=== PATIENT | female | born 1990 | race Caucasian/White ===

== ENCOUNTER 2016-05-20 20:45 | Emergency (ER) | payer BC, OTHER ==
[2016-05-20 20:52] VITALS: RESP 18
[2016-05-20] MEDS ORDERED: SODIUM CHLORIDE 0.9% 1,000 ML IV ONE (21:08)
--- NOTE | 2016-05-20 21:11 | ED ---
General Adult HPI - General Chief complaint: Urogenital Stated complaint: Bilat Flank Pain Time Seen by Provider: 05/20/16 20:56 Source: patient, RN notes reviewed Mode of arrival: ambulatory Limitations: no limitations - History of Present Illness Initial comments: This is a 26-year-old female who presents with complaints of bilateral flank pain. Patient states she was diagnosed on Wednesday with a urinary tract infection and placed on Bactrim. Patient has been taking Bactrim since Wednesday. Patient reports increased bilateral back and flank pain since this morning. Patient states she still having burning with urination, frequency of urination. Patient has also noticed that the toilet paper is pink when she wipes and states this is a normal symptom that she gets with UTIs. Patient admits to some mild nausea when the pain gets really bad but denies any nausea right now. Patient denies any vomiting or diarrhea. Patient denies any new sexual partners, vaginal discharge or any lower abdominal pain. Patient denies any chance of being and is on oral contraceptives. Patient denies any recent fever, chills, shortness breath, chest pain, numbness, tingling, hematuria, headache, or visual changes, or any other complaints. - Related Data Home Medications Medication Instructions Recorded Confirmed Norgestimate-Ethinyl Estradiol 1 tab PO DAILY 05/20/16 05/20/16 [Norg-Ee 0.18-0.215-0.25/0.035] Sulfamethox-Tmp 800-160Mg [Bactrim 1 tab PO BID 05/20/16 05/20/16 DS 800-160 mg] Previous Rx's Medication Instructions Recorded Levofloxacin [Levaquin] 750 mg PO DAILY 5 Days 05/20/16 Phenazopyridine HCl [Pyridium] 100 mg PO TID #6 tab 05/20/16 Allergies Allergy/AdvReac Type Severity Reaction Status Date / Time No Known Allergies Allergy Verified 05/20/16 21:30 Review of Systems ROS Statement: Those systems with pertinent positive or pertinent negative responses have been documented in the HPI. ROS Other: All systems not noted in ROS Statement are negative. Past Medical History Past Medical History: No Reported History History of Any Multi-Drug Resistant Organisms: None Reported Past Surgical History: No Surgical Hx Reported Past Anesthesia/Blood Transfusion Reactions: No Reported Reaction Past Psychological History: Depression Smoking Status: Never smoker Past Alcohol Use History: Occasional Past Drug Use History: IV Drug Use General Exam - General Exam Comments Initial Comments: General: The patient is awake and alert, in no distress, and does not appear acutely ill. Eye: Pupils are equal, round and reactive to light, extra-ocular movements are intact. No nystagmus. There is normal conjunctiva bilaterally. No signs of icterus. Ears: TMs pink and pearly with intact cone of light bilaterally. Normal external ear canals Nose: Nasal turbinates pink and moist Mouth and throat: There are moist mucous membranes and no oral lesions. Neck: The neck is supple, there is no tenderness or JVD. Cardiovascular: There is a regular rate and rhythm. No murmur, rub or gallop is appreciated. Respiratory: Lungs are clear to auscultation, respirations are non-labored, breath sounds are equal. No wheezes, stridor, rales, or rhonchi. Gastrointestinal: Bilateral CVA tenderness, mild tenderness to palpation of the epigastric area and bilateral flanks. No right or left lower quadrant pain. Soft, non-distended abdomen without masses or organomegaly noted. There is no rebound or guarding present. Bowel sounds are unremarkable. Musculoskeletal: Normal ROM, no tenderness. Strength 5/5. Sensation intact. Radial pulses equal bilaterally 2+. Neurological: A&O x 3. CN II-XII intact, There are no obvious motor or sensory deficits. Coordination appears grossly intact. Speech is normal. Skin: Skin is warm and dry and no rashes or lesions are noted. Psychiatric: Cooperative, appropriate mood & affect, normal judgment. Limitations: no limitations Course Vital Signs 05/20/16 05/21/16 20:49 00:17 Temperature 98.3 F 98.0 F Pulse Rate 83 85 Respiratory 18 18 Rate Blood Pressure 144/90 127/84 O2 Sat by Pulse 97 100 Oximetry Medical Decision Making - Medical Decision Making This is a 26yo female who presents with increasing UTI symptoms and bilateral flank pain. On physical exam patient is well-appearing and afebrile. Bilateral CVA tenderness, mild tenderness to palpation of the epigastric area and bilateral flanks. Soft, non-distended abdomen without masses or organomegaly noted. There is no rebound or guarding present. Bowel sounds are unremarkable. A repeat urinalysis was done. Urine culture is pending. Basic labs are drawn and reviewed. Elevated white count noted. UA is showing evidence of UTI. At this time patient developed more pain in the back and a CT of abdomen and pelvis without contrast was done and reviewed showing: Negative computed tomography scan of the abdomen and pelvis. I do not see a cause for bilateral flank pain. Report by Dr. Wild. Patient is given Dilaudid for pain and noted relief. I discussed the results with patient. I discussed that patient' s antibiotics will be switched from Bactrim to Levaquin. I discussed pyridium for pain along with Tylenol and Motrin. I discussed return parameters at length. I discussed the patient should drink plenty of fluids. Discussed that patient should follow up with PCP tomorrow or return to the [facility] for any worsening symptoms or for any further concerns. Patient was receptive to this plan and patient will be discharged home. I discussed this case with attending physician Dr. Sanz who agrees the plan as stated above. - Lab Data Result diagrams: 05/20/16 21:25 05/20/16 21:25 Lab Results 05/20/16 05/20/16 05/20/16 Range/Units 21:25 21:25 21:27 WBC 14.1 H (3.8-10.6) k/uL RBC 4.38 (3.80-5.40) m/uL Hgb 13.2 (11.4-16.0) gm/dL Hct 36.9 (34.0-46.0) % MCV 84.1 (80.0-100.0) fL MCH 30.1 (25.0-35.0) pg MCHC 35.8 (31.0-37.0) g/dL RDW 13.2 (11.5-15.5) % Plt Count 253 (150-450) k/uL Neutrophils % 75 % Lymphocytes % 19 % Monocytes % 4 % Eosinophils % 1 % Basophils % 0 % Neutrophils # 10.6 H (1.3-7.7) k/uL Lymphocytes # 2.7 (1.0-4.8) k/uL Monocytes # 0.5 (0-1.0) k/uL Eosinophils # 0.2 (0-0.7) k/uL Basophils # 0.1 (0-0.2) k/uL Sodium 140 (137-145) mmol/L Potassium 4.3 (3.5-5.1) mmol/L Chloride 102 (98-107) mmol/L Carbon Dioxide 26 (22-30) mmol/L Anion Gap 12 mmol/L BUN 16 (7-17) mg/dL Creatinine 0.91 (0.52-1.04) mg/dL Est GFR (MDRD) Af Amer >60 (>60 ml/min/1.73 sqM) Est GFR (MDRD) Non-Af >60 (>60 ml/min/1.73 sqM) Glucose 89 (74-99) mg/dL Calcium 9.4 (8.4-10.2) mg/dL Total Bilirubin 0.4 (0.2-1.3) mg/dL AST 20 (14-36) U/L ALT 26 (9-52) U/L Alkaline Phosphatase 53 (38-126) U/L Total Protein 6.8 (6.3-8.2) g/dL Albumin 3.9 (3.5-5.0) g/dL Amylase 56 (30-110) U/L Lipase 123 (23-300) U/L HCG, Quant <2.4 mIU/mL Urine Color Yellow Urine Appearance Cloudy H (Clear) Urine pH 6.5 (5.0-8.0) Ur Specific [place] 1.012 (1.001-1.035) Urine Protein 1+ H (Negative) Urine Glucose (UA) Negative (Negative) Urine Ketones Negative (Negative) Urine Blood Moderate H (Negative) Urine Nitrite Negative (Negative) Urine Bilirubin Negative (Negative) Urine Urobilinogen <2.0 (<2.0) mg/dL Ur Leukocyte Esterase Large H (Negative) Urine RBC 88 H (0-5) /hpf Urine WBC >182 H (0-5) /hpf Urine WBC Clumps Few H (None) /hpf Urine Bacteria Few H (None) /hpf Disposition Clinical Impression: Urinary tract infection Disposition: HOME SELF-CARE Condition: Good Instructions: Urinary Tract Infection in Women (ED) Additional Instructions: Please stop Bactrim and take Levaquin. Please use Pyridium, Tylenol and Motrin for pain. Please be sure to drink plenty of fluids. Please follow-up with her family physician tomorrow or return to the [facility] for any worsening symptoms or for any further concerns. Prescriptions: Levofloxacin [Levaquin] 750 mg PO DAILY 5 Days Phenazopyridine HCl [Pyridium] 100 mg PO TID #6 tab Referrals: Thea Madden DO [Primary Care Provider] - 1-2 days Time of Disposition: 23:55
[2016-05-20 21:33] LABS: Appearance,Urine Cloudy (Clear); Bacteria,Urine Few /hpf; Bilirubin,Urine Negative (Negative); Glucose,Urine (UA) Negative (Negative); Ketones,Urine Negative (Negative); Leukocyte Esterase,Urine Large (Negative); Nitrite,Urine Negative (Negative); PH, Urine 6.5 (5.0-8.0); Particle Count 20989; Protein,Urine 1+ (Negative); RBC,Urine 88 /hpf (0-5); Specific Gravity,Urine 1.012 (1.001-1.035); UA Billing (MACRO vs. MICRO) MICRO; Urobilinogen,Urine <2.0 mg/dL (<2.0); WBC,Urine >182 /hpf (0-5)
[2016-05-20 21:37] LABS: Basophils # (A) 0.1 k/uL (0-0.2); Basophils % (A) 0 %; CHCM 35.7; Eosinophils # (A) 0.2 k/uL (0-0.7); Eosinophils % (A) 1 %; HCT 36.9 % (34.0-46.0); HDW 3.12; HGB 13.2 gm/dL (11.4-16.0); Luc # (Auto) 0.12; Luc % (Auto) 1; Lymphocytes # (A) 2.7 k/uL (1.0-4.8); Lymphocytes % (A) 19 %; MCH 30.1 pg (25.0-35.0); MCHC 35.8 g/dL (31.0-37.0); MCV 84.1 fL (80.0-100.0); Mean Platelet Volume 7.1; Monocytes # (A) 0.5 k/uL (0-1.0); Monocytes % (A) 4 %; Neutrophils # (A) 10.6 k/uL (1.3-7.7); Neutrophils % (A) 75 %; RBC 4.38 m/uL (3.80-5.40); RDW 13.2 % (11.5-15.5); WBC 14.1 k/uL (3.8-10.6); WBC (Perox) 14.35
[2016-05-20 21:52] LABS: ALT 26 U/L (9-52); AST 20 U/L (14-36); Alkaline Phosphatase 53 U/L (38-126); Amylase 56 U/L (30-110); Anion Gap 12 mmol/L; Blood Urea Nitrogen 16 mg/dL (7-17); Calcium 9.4 mg/dL (8.4-10.2); Carbon Dioxide 26 mmol/L (22-30); Chloride 102 mmol/L (98-107); Glucose 89 mg/dL (74-99); Non-African American GFR(MDRD) >60 (>60 ml/min/1.73 sqM); Potassium 4.3 mmol/L (3.5-5.1); Sodium 140 mmol/L (137-145); Total Bilirubin 0.4 mg/dL (0.2-1.3); Total Protein 6.8 g/dL (6.3-8.2)
[2016-05-20 22:08] LABS: HCG,Quantitative Serum <2.4 mIU/mL
[2016-05-20] MEDS ORDERED: HYDROmorphone 1 MG/ML 1 ML SYRINGE IVP STA (23:12)
--- NOTE | 2016-05-20 23:47 | CT ---
EXAMINATION TYPE: CT abdomen pelvis wo con DATE OF EXAM: 05/20/2016 11:39 PM COMPARISON: NONE HISTORY: UTI, bi-lateral flank pain CT DLP: 424.90 mGycm Automated exposure control for dose reduction was used. TECHNIQUE: Helical acquisition of images was performed from the lung bases through the pelvis. FINDINGS: Lung bases are clear. There is no pleural effusion. Liver spleen pancreas gallbladder appear normal. Bile ducts are not dilated. Kidneys have normal size and contour. There is no hydronephrosis. Ureters are not dilated. Bladder distends smoothly. There i s no pelvic mass. I see no intestinal wall thickening. There are no dilated loops. The bony structure s are intact. Uterus is anteverted. Appendix is not seen. There is no sign of appendicitis. IMPRESSION: NEGATIVE CT SCAN OF THE ABDOMEN AND PELVIS. I DO NOT SEE A CAUSE FOR BILATERAL FLANK PAIN.
[2016-05-21 00:18] VITALS: BP 127/84; PULSE 85; TEMP 98
== END 2016-05-21 00:18 | disposition home or self-care (01) ==
LOC: EC 20:45
DX: N39.0 Urinary tract infection, site not specified (principal); R10.816 Epigastric abdominal tenderness; D72.829 Elevated white blood cell count, unspecified; Z79.3 Long term (current) use of hormonal contraceptives
CPT/HCPCS: 36415; 80053; 82150; 83690; 85025; 81001; 84702; 87086; 74176; 99284; 96374; J1170; 87077; 87186

== ENCOUNTER 2016-07-19 20:29 | Emergency (ER) | payer BC, OTHER ==
[2016-07-19] MEDS ORDERED: ACETAMINOPHEN TAB 500 MG TAB PO STA (20:48)
[2016-07-19 20:52] VITALS: RESP 20
--- NOTE | 2016-07-19 21:13 | ED ---
ENT HPI - General Chief complaint: ENT Stated complaint: poss strep throat Time Seen by Provider: 07/19/16 20:44 Source: patient, RN notes reviewed, old records reviewed Mode of arrival: ambulatory Limitations: no limitations - History of Present Illness Initial comments: 26-year-old female with chief sore throat and fever. Seen him. She has NyQuil last night. Patient states that she's noticed some white spots on her tonsils. Patient states that she's not had any Motrin or Tylenol recently. Denies any history of sick contacts. Up-to-date on vaccinations. - Related Data Previous Rx's Medication Instructions Recorded Amoxicillin 500 mg PO Q8H #30 capsule 07/19/16 Allergies Allergy/AdvReac Type Severity Reaction Status Date / Time No Known Allergies Allergy Verified 07/19/16 20:52 Review of Systems ROS Statement: Those systems with pertinent positive or pertinent negative responses have been documented in the HPI. ROS Other: All systems not noted in ROS Statement are negative. Past Medical History Past Medical History: No Reported History History of Any Multi-Drug Resistant Organisms: None Reported Past Surgical History: No Surgical Hx Reported Past Anesthesia/Blood Transfusion Reactions: No Reported Reaction Past Psychological History: Depression Smoking Status: Never smoker Past Alcohol Use History: Occasional Past Drug Use History: IV Drug Use General Exam Limitations: no limitations General appearance: alert, in no apparent distress Head exam: Present: atraumatic, normocephalic, normal inspection Eye exam: Present: normal appearance, PERRL, EOMI. Absent: scleral icterus, conjunctival injection, periorbital swelling ENT exam: Present: normal exam, mucous membranes moist. Absent: normal oropharynx (erythematous and edematous tonsil wiht white exudates. ) Neck exam: Present: normal inspection, lymphadenopathy. Absent: tenderness, meningismus Respiratory exam: Present: normal lung sounds bilaterally. Absent: respiratory distress, wheezes, rales, rhonchi, stridor Cardiovascular Exam: Present: regular rate, normal rhythm, normal heart sounds. Absent: systolic murmur, diastolic murmur, rubs, gallop, clicks GI/Abdominal exam: Present: soft, normal bowel sounds. Absent: distended, tenderness, guarding, rebound, rigid Back exam: Present: normal inspection Neurological exam: Present: alert, oriented X3, CN II-XII intact Psychiatric exam: Present: normal affect, normal mood Skin exam: Present: warm, dry, intact, normal color. Absent: rash Course Vital Signs 07/19/16 07/19/16 20:49 21:53 Temperature 101.0 F H 98.7 F Pulse Rate 98 80 Respiratory 20 20 Rate Blood Pressure 121/63 135/60 O2 Sat by Pulse 100 100 Oximetry Medical Decision Making - Medical Decision Making 26-year-old female with chief sore throat and fever. Seen him. She has NyQuil last night. Patient states that she's noticed some white spots on her tonsils. Patient states that she's not had any Motrin or Tylenol recently. Denies any history of sick contacts. Up-to-date on vaccinations. Patient has erythematous and edematous tonsil with exudate, Rapid strep is positive. PAtient will be started on amoxicillin, given a starter pack. Patient understands treatment plan and will comply. Return parameters discussed. - Lab Data Lab Results 07/19/16 Range/Units 20:48 Group A Strep Rapid Positive A (Negative) Disposition Clinical Impression: Strep pharyngitis Disposition: HOME SELF-CARE Condition: Good Instructions: Strep Throat (ED) Additional Instructions: Rest, increase fluids. Continue to take Motrin and Tylenol every 4 hours for fever. Return to the emergency department if any alarming signs or symptoms occur. Complete entire antibiotic prescription. Prescriptions: Amoxicillin 500 mg PO Q8H #30 capsule Referrals: Thea Madden DO [Primary Care Provider] - 1-2 days Time of Disposition: 21:28
[2016-07-19] MEDS ORDERED: AMOXICILLIN 500MG STARTER PACK 3 CAP BTL PO STA (21:30)
[2016-07-19 21:54] VITALS: BP 135/60; PULSE 80; TEMP 98.7
== END 2016-07-19 21:53 | disposition home or self-care (01) ==
LOC: EC 20:29
DX: J02.0 Streptococcal pharyngitis (principal)
CPT/HCPCS: 87430; 99284

== ENCOUNTER 2016-11-26 19:55 | Emergency (ER) | payer BC, OTHER ==
[2016-11-26 20:07] VITALS: RESP 20
[2016-11-26 20:57] LABS: Appearance,Urine Clear (Clear); Bilirubin,Urine Negative (Negative); Glucose,Urine (UA) Negative (Negative); Ketones,Urine Negative (Negative); Leukocyte Esterase,Urine Negative (Negative); Nitrite,Urine Negative (Negative); Protein,Urine Negative (Negative); Specific Gravity,Urine 1.004 (1.001-1.035); UA Billing (MACRO vs. MICRO) CHEM; Urobilinogen,Urine <2.0 mg/dL (<2.0)
--- NOTE | 2016-11-26 21:49 | ED ---
General Adult HPI - General Chief complaint: Urogenital Stated complaint: kidney pain Time Seen by Provider: 11/26/16 21:08 Source: patient Mode of arrival: ambulatory Limitations: no limitations - History of Present Illness Initial comments: Patient presents with a chief complaint of right upper quadrant, and right flank pain that for about 2 days. Patient cannot identify inciting incident. Patient states that laying on that side and her pain worse. She does not identify that eating makes anything better or worse. Patient states that recently she has been going through a lot of personal stress, and her diet has been poor including fatty and greasy foods. There are no alleviating factors that she knows of. Patient has not tried taking any medications on an outpatient basis for relief. Timing is constant. Patient is on control, states that she just finished her period. - Related Data Home Medications Medication Instructions Recorded Confirmed Norgestimate-Ethinyl Estradiol 1 tab PO DAILY 11/26/16 11/26/16 [Ortho Tri-Cyclen 28 Tablet] Allergies Allergy/AdvReac Type Severity Reaction Status Date / Time No Known Allergies Allergy Verified 11/26/16 20:40 Review of Systems ROS Statement: Those systems with pertinent positive or pertinent negative responses have been documented in the HPI. ROS Other: All systems not noted in ROS Statement are negative. Constitutional: Denies: fever Eyes: Denies: vision change ENT: Denies: congestion Respiratory: Denies: cough Cardiovascular: Denies: chest pain Endocrine: Denies: fatigue Gastrointestinal: Reports: abdominal pain. Denies: nausea, vomiting Genitourinary: Reports: frequency Musculoskeletal: Reports: back pain Skin: Denies: rash Neurological: Denies: headache Past Medical History Past Medical History: No Reported History Additional Past Medical History / Comment(s): hx of UTI History of Any Multi-Drug Resistant Organisms: None Reported Past Surgical History: No Surgical Hx Reported Past Anesthesia/Blood Transfusion Reactions: No Reported Reaction Past Psychological History: Depression Smoking Status: Never smoker Past Alcohol Use History: Occasional Past Drug Use History: None Reported General Exam Limitations: no limitations General appearance: alert, in no apparent distress Head exam: Present: atraumatic, normocephalic Respiratory exam: Present: normal lung sounds bilaterally Cardiovascular Exam: Present: regular rate, normal rhythm, normal heart sounds GI/Abdominal exam: Present: soft, tenderness (Patient has tenderness to palpation the right upper quadrant but she says is very reproductive of the pain she is experiencing at home. There is a positive Ackerman sign.) Rectal exam: Present: deferred Extremities exam: Present: normal inspection Back exam: Present: CVA tenderness (R). Absent: CVA tenderness (L) Neurological exam: Present: alert, oriented X3 Psychiatric exam: Present: normal affect, normal mood Skin exam: Present: warm, dry, intact Course Vital Signs 11/26/16 20:05 Temperature 98.2 F Pulse Rate 86 Respiratory 20 Rate Blood Pressure 133/93 O2 Sat by Pulse 97 Oximetry Medical Decision Making - Medical Decision Making Patient presents with chief complaint of right-sided flank and right upper quadrant pain. History of physical examination are concerning for UTI versus pyelonephritis versus gallbladder pathology. Patient will have basic abdominal lab work. Patient will go for an ultrasound. Urinalysis does not show any evidence of urinary tract infection. This time vital signs are stable, patient does not require anything for pain. 11:37 PM Lab evaluation the patient is benign. There does not appear to be any evidence of urinary tract infection, liver enzymes including alk phos. appear to be within normal limits. There is no white count. At this time we are pending the radiologist's interpretation of the ultrasound. Patient remained stable. 11:41 PM Ultrasound of the abdomen shows no acute abnormality. There are no gallstones or dilated ducts identified. At this time, patient is stable for discharge. She is instructed to follow up with primary care or return to the emergency department if her symptoms worsen or change in anyway. All of her questions are answered to the best of my abilities. - Lab Data Result diagrams: 11/26/16 22:10 11/26/16 22:10 Lab Results 11/26/16 11/26/16 11/26/16 Range/Units 20:45 22:10 22:10 WBC 8.0 (3.8-10.6) k/uL RBC 4.43 (3.80-5.40) m/uL Hgb 13.4 (11.4-16.0) gm/dL Hct 39.2 (34.0-46.0) % MCV 88.5 (80.0-100.0) fL MCH 30.3 (25.0-35.0) pg MCHC 34.3 (31.0-37.0) g/dL RDW 13.5 (11.5-15.5) % Plt Count 241 (150-450) k/uL Neutrophils % 53 % Lymphocytes % 38 % Monocytes % 6 % Eosinophils % 1 % Basophils % 1 % Neutrophils # 4.2 (1.3-7.7) k/uL Lymphocytes # 3.0 (1.0-4.8) k/uL Monocytes # 0.5 (0-1.0) k/uL Eosinophils # 0.1 (0-0.7) k/uL Basophils # 0.1 (0-0.2) k/uL Sodium 138 (137-145) mmol/L Potassium 4.3 (3.5-5.1) mmol/L Chloride 102 (98-107) mmol/L Carbon Dioxide 26 (22-30) mmol/L Anion Gap 10 mmol/L BUN 13 (7-17) mg/dL Creatinine 0.90 (0.52-1.04) mg/dL Est GFR (MDRD) Af Amer >60 (>60 ml/min/1.73 sqM) Est GFR (MDRD) Non-Af >60 (>60 ml/min/1.73 sqM) Glucose 88 (74-99) mg/dL Calcium 8.9 (8.4-10.2) mg/dL Total Bilirubin 0.3 (0.2-1.3) mg/dL AST 20 (14-36) U/L ALT 30 (9-52) U/L Alkaline Phosphatase 57 (38-126) U/L Total Protein 6.4 (6.3-8.2) g/dL Albumin 3.8 (3.5-5.0) g/dL Lipase 129 (23-300) U/L HCG, Qual Not Detected Urine Color Light Yellow Urine Appearance Clear (Clear) Urine pH 6.0 (5.0-8.0) Ur Specific [place] 1.004 (1.001-1.035) Urine Protein Negative (Negative) Urine Glucose (UA) Negative (Negative) Urine Ketones Negative (Negative) Urine Blood Negative (Negative) Urine Nitrite Negative (Negative) Urine Bilirubin Negative (Negative) Urine Urobilinogen <2.0 (<2.0) mg/dL Ur Leukocyte Esterase Negative (Negative) Disposition Clinical Impression: Strain of muscle, fascia and tendon of lower back, initial encounter Disposition: HOME SELF-CARE Condition: Good Instructions: Acute Low Back Pain (ED) Referrals: Thea Madden DO [Primary Care Provider] - 1-2 days
[2016-11-26 22:26] LABS: Basophils # (A) 0.1 k/uL (0-0.2); Basophils % (A) 1 %; CH 31.8; CHCM 36.1; Eosinophils # (A) 0.1 k/uL (0-0.7); Eosinophils % (A) 1 %; HCT 39.2 % (34.0-46.0); HDW 2.67; HGB 13.4 gm/dL (11.4-16.0); Luc # (Auto) 0.16; Luc % (Auto) 2; Lymphocytes % (A) 38 %; MCH 30.3 pg (25.0-35.0); MCHC 34.3 g/dL (31.0-37.0); MCV 88.5 fL (80.0-100.0); Mean Platelet Volume 7.6; Monocytes # (A) 0.5 k/uL (0-1.0); Monocytes % (A) 6 %; Neutrophils # (A) 4.2 k/uL (1.3-7.7); Neutrophils % (A) 53 %; RBC 4.43 m/uL (3.80-5.40); RDW 13.5 % (11.5-15.5); WBC (Perox) 8.48
[2016-11-26 22:31] LABS: HCG,Qualitative Serum Not Detected
[2016-11-26 22:40] LABS: ALT 30 U/L (9-52); AST 20 U/L (14-36); Alkaline Phosphatase 57 U/L (38-126); Anion Gap 10 mmol/L; Blood Urea Nitrogen 13 mg/dL (7-17); Calcium 8.9 mg/dL (8.4-10.2); Carbon Dioxide 26 mmol/L (22-30); Chloride 102 mmol/L (98-107); Glucose 88 mg/dL (74-99); Non-African American GFR(MDRD) >60 (>60 ml/min/1.73 sqM); Potassium 4.3 mmol/L (3.5-5.1); Sodium 138 mmol/L (137-145); Total Bilirubin 0.3 mg/dL (0.2-1.3); Total Protein 6.4 g/dL (6.3-8.2)
--- NOTE | 2016-11-26 23:39 | US ---
EXAMINATION TYPE: US abdomen complete DATE OF EXAM: 11/26/2016 COMPARISON: NONE CLINICAL HISTORY: Pain. EXAM MEASUREMENTS: Liver Length: 14.8 cm Gallbladder Wall: 0.21 cm CBD: 0.42 cm Spleen: 12.2 cm Right Kidney: 9.6 x 4.5 x 4.3 cm Left Kidney: 11.5 x 5.4 x 4.4 cm Pancreas: wnl Liver: wnl Gallbladder: wnl Evidence for sonographic Ackerman's sign: No CBD: wnl Spleen: wnl Right Kidney: No hydronephrosis or masses seen Left Kidney: No hydronephrosis or masses seen Upper IVC: wnl Abd Aorta: wnl The liver is homogenous. The intrahepatic portion of the IVC and proximal abdominal aorta are within normal limits. There is no evidence of cholelithiasis. Common bile duct is unremarkable. The visu alized portions of the pancreas are homogenous. The spleen is unremarkable. Kidneys are symmetric a nd free of hydronephrosis. No renal lesions are seen. IMPRESSION: Normal complete abdominal sonogram. No gallstones or dilated ducts.
[2016-11-27] VITALS: BP 116/67; PULSE 80; TEMP 98.7
== END 2016-11-27 | disposition home or self-care (01) ==
LOC: EC 19:55
DX: S39.012A Strain of muscle, fascia and tendon of lower back, initial encounter (principal); Z79.3 Long term (current) use of hormonal contraceptives; X58.XXXA Exposure to other specified factors, initial encounter
CPT/HCPCS: 36415; 76700; 80053; 81003; 83690; 84703; 85025; 87086; 99284

== ENCOUNTER 2017-07-31 17:50 | Emergency (ER) | payer OTHER, BC ==
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
[2017-07-31 18:48] LABS: Appearance,Urine Clear (Clear); Bilirubin,Urine Negative (Negative); Blood,Urine Negative (Negative); Color,Urine Yellow; Glucose,Urine (UA) Negative (Negative); Granular Casts,Urine 21 /lpf (0); Hyaline Casts,Urine 1 /lpf (0-2); Ketones,Urine Trace (Negative); Leukocyte Esterase,Urine Negative (Negative); Mucus,Urine Moderate /hpf; Nitrite,Urine Negative (Negative); Protein,Urine 1+ (Negative); RBC,Urine 2 /hpf (0-5); Specific Gravity,Urine 1.023 (1.001-1.035); Squamous Epithelial Cell,Urine 2 /hpf (0-4); Urobilinogen,Urine <2.0 mg/dL (<2.0); WBC,Urine 4 /hpf (0-5)
[2017-07-31 19:07] VITALS: BP 115/68; PULSE 91; RESP 16; TEMP 98.6
== END 2017-07-31 19:00 | disposition home or self-care (01) ==
LOC: EC 17:50
DX: O99.89 Other specified diseases and conditions complicating pregnancy, childbirth and the puerperium (principal); R10.9 Unspecified abdominal pain; Z3A.13 13 weeks gestation of pregnancy; V49.40XA Driver injured in collision with unspecified motor vehicles in traffic accident, initial encounter; Y92.410 Unspecified street and highway as the place of occurrence of the external cause
CPT/HCPCS: 81001; 99284

== ENCOUNTER 2017-11-18 12:41 | Outpatient (CLI) | payer BC, OTHER ==
[2017-11-18 20:18] VITALS: BP 119/63; PULSE 77; RESP 16; TEMP 98.2
--- NOTE | 2017-11-28 10:28 | P.MSEPDOC ---
Presenting Problems - Arrival Data Date of Arrival on Unit: 11/18/17 Time of Arrival on Unit: 12:41 Mode of Transport: Ambulatory - Complaint OB-Reason for Admission/Chief Complaint: Pain Comment: pt states reason for visit is she is having pressure in pelvis and lower. abdomen. states is not labor or contractions but feels like baby is really low putting a. lot of pressure on her. states slipped on stairs Wednesday and fell onto butt on step". large purple bruise 2 in by 5 inches lt buttock. states baby movement great no cramping. after fall. states she "checked herself and could not feel baby's head Medical History - Information : 3 Para: 2 Term: 2 : 0 Abortions: Spontaneous or Elective: 0 Number of Living Children: 2 - Gestational Age Gestational Age by WALLACE (wks/days): 28 Weeks and 2 Days Review of Systems - Review of Systems Constitutional: No problems Breast: No problems ENT: No problems Cardiovascular: No problems Respiratory: No problems Gastrointestinal: No problems Genitourinary: No problems Musculoskeletal: No problems Neurological: No problems Skin: No problems Vital Signs - Temperature Temperature: 98.2 F Temperature Source: Oral - Pulse Right Pulse Oximetery Pulse Rate: 77 Pulse Assessment Method: Pulse Oximetry - Respirations Respiratory Rate: 16 Oxygen Delivery Method: Room Air O2 Sat by Pulse Oximetry: 97 - Blood Pressure Right Arm Blood Pressure: 119/63 Blood Pressure Mean: 81 Blood Pressure Source: Automatic Cuff Medical Screen Scoring (Pre) - Cervical Exam Dilation: 0 cm = 0 Membranes: Intact - Uterine Contractions Frequency: N/A Duration: N/A Intensity: N/A - Maternal Vital Signs Maternal Temperature: N/A Maternal Blood Pressure: N/A Signs of Preeclampsia: N/A Maternal Respirations: N/A - Pain Assessment Pain Location and Character: Pelvic Pain Scale Used: Numeric (1 - 10) Pain Intensity: 6 Pain Description: Pressure Pain Frequency: Mainly with activity standing and walking Pain Duration Units: off and on last few days Pain Behavior: None Exhibited Effects of Pain: none Pain Aggravating Factors: Activity, Walking - Maternal Trauma Maternal Trauma: N/A - Assessment Baseline FHR: 135 Heart Rate - NICHD Category: Category I (Normal) = 0 NST: Reactive Position: N/A Station: N/A - Total Score Total Score (Pre): 0 - Level of Risk Level of Risk: Low (0-5) Physician Notification (Pre) - Physician Notified Physician Notified Date: 11/18/17 Physician Notified Time: 13:33 Physician/Practitioner Notifed:: Dr Vo Spoke With: Dr Vo New Order Received: Yes - Notification Comment Comment: Dr Vo in department. discussed reason for visit pain and presure in plevis. "feels like bones pain not ligement pain". reported cat 1 fht. reactive NST. orders for. cervical exam and then discharge if not dialated. cervix closed pt discharged Disposition - Disposition OB Disposition: Discharge to home Discharge Date: 11/18/17 Discharge Time: 13:47 I agree with the RN Medical Screening Exam: Yes Risk & Benefit of care provided described in d/c instruction: Yes Diagnosis: RELATED CONDITIONS, UNSPECIFIED, THIRD TRIMESTER (s/p fall)
== END 2017-11-18 13:47 | disposition home or self-care (01) ==
LOC: FBPOP 12:41
PROVIDERS: ATTEND Obstetrics & Gynecology
DX: O26.93 Pregnancy related conditions, unspecified, third trimester (principal); Z3A.28 28 weeks gestation of pregnancy
CPT/HCPCS: 59025; 99213

== ENCOUNTER 2018-02-05 14:45 | Outpatient (CLI) | payer BC, OTHER ==
[2018-02-05 15:48] VITALS: BP 129/59; PULSE 83; RESP 18; TEMP 97.2
--- NOTE | 2018-02-28 17:41 | P.MSEPDOC ---
Presenting Problems - Arrival Data Date of Arrival on Unit: 02/05/18 Time of Arrival on Unit: 14:45 Mode of Transport: Ambulatory - Complaint OB-Reason for Admission/Chief Complaint: Possible Onset of Labor Comment: pt not sure if she is in labor, lost mucous plug and having some pelvic pressure Medical History - Information : 4 Para: 2 Term: 2 : 0 Abortions: Spontaneous or Elective: 1 Number of Living Children: 2 - Gestational Age Gestational Age by WALLACE (wks/days): 39 Weeks and 6 Days - History Complications: GBS+ Review of Systems - Review of Systems Constitutional: No problems Breast: No problems ENT: No problems Cardiovascular: No problems Respiratory: No problems Gastrointestinal: No problems Genitourinary: No problems Musculoskeletal: No problems Neurological: No problems Skin: No problems Vital Signs - Temperature Temperature: 97.2 F Temperature Source: Temporal Artery Scan - Pulse Right Brachial Pulse Rate: 83 Pulse Assessment Method: Automatic Cuff - Respirations Respiratory Rate: 18 Oxygen Delivery Method: Room Air - Blood Pressure Right Arm Blood Pressure: 129/59 Blood Pressure Mean: 82 Blood Pressure Source: Automatic Cuff Medical Screen Scoring (Pre) - Cervical Exam Dilation: 1-3 cm = 1 Effacement: More than 50% = 2 Membranes: Intact - Uterine Contractions Frequency: > 5 minutes apart = 1 Duration: N/A Intensity: N/A - Maternal Vital Signs Maternal Temperature: N/A Maternal Blood Pressure: N/A Signs of Preeclampsia: N/A Maternal Respirations: N/A - Pain Assessment Pain Location and Character: Pelvic Pain Scale Used: Numeric (1 - 10) Pain Intensity: 6 Pain Description: *Acute, Pressure Pain Frequency: Intermittent Pain Behavior: Vocalization - Maternal Trauma Maternal Trauma: N/A - Assessment Baseline FHR: 140 Heart Rate - NICHD Category: Category I (Normal) = 0 NST: Reactive Position: N/A Station: N/A - Total Score Total Score (Pre): 4 - Level of Risk Level of Risk: Low (0-5) Physician Notification (Pre) - Physician Notified Physician Notified Date: 02/05/18 Physician Notified Time: 15:10 Physician/Practitioner Notifed:: Dr. Mak Spoke With: Dr. Mak New Order Received: Yes - Notification Comment Comment: Discharge pt home once we have reactive NST Disposition - Disposition OB Disposition: Triage, Discharge to home, Written follow up instructions reviewed Discharge Date: 02/05/18 Discharge Time: 15:40 I agree with the RN Medical Screening Exam: Yes Risk & Benefit of care provided described in d/c instruction: Yes Diagnosis: FALSE LABOR AT OR AFTER 37 COMPLETED WEEKS OF GESTATION
== END 2018-02-05 15:40 | disposition home or self-care (01) ==
LOC: FBPOP 14:45
PROVIDERS: ATTEND Obstetrics & Gynecology
DX: O47.1 False labor at or after 37 completed weeks of gestation (principal); Z3A.39 39 weeks gestation of pregnancy
CPT/HCPCS: 59025; 99213

== ENCOUNTER 2018-02-06 04:50 | Inpatient (IN) | payer BC, OTHER ==
[2018-02-06] MEDS ORDERED: TERBUTALINE 1 MG/ML VIAL SQ PRN (05:15)
[2018-02-06] MEDS ORDERED: METHYLERGONOVINE 0.2 MG/ML 1 ML AMP IM PRN (05:15)
[2018-02-06] MEDS ORDERED: OXYTOCIN 10 UNIT/ML 1 ML VIAL IM PRN (05:15)
[2018-02-06] MEDS ORDERED: LIDOCAINE 0.5% (PF) 5 MG/ML (50 ML SDV) SQ PRN (05:15)
[2018-02-06] MEDS ORDERED: LACTATED RINGERS 1,000 ML IV SCH (05:15)
[2018-02-06] MEDS ORDERED: CARBOPROST TROMETHAMINE 250 MCG/ML 1 ML AMP IM PRN (05:15)
[2018-02-06 05:24] VITALS: BMI 36.8
[2018-02-06] MEDS ORDERED: AMPICILLIN 2,000 MG in SODIUM CHLORIDE 0.9% 100 ML IVPB STA (05:26)
[2018-02-06 05:34] LABS: Basophils % (A) 0 %; Eosinophils # (A) 0.1 k/uL (0-0.7); Eosinophils % (A) 1 %; HCT 36.4 % (34.0-46.0); HGB 12.5 gm/dL (11.4-16.0); Lymphocytes % (A) 12 %; MCHC 34.5 g/dL (31.0-37.0); MCV 84.2 fL (80.0-100.0); Mean Platelet Volume 7.7; Monocytes # (A) 0.7 k/uL (0-1.0); Monocytes % (A) 4 %; Neutrophils # (A) 12.8 k/uL (1.3-7.7); Neutrophils % (A) 81 %; Platelet Count 198 k/uL (150-450); RBC 4.32 m/uL (3.80-5.40); RDW 14.3 % (11.5-15.5); WBC 15.9 k/uL (3.8-10.6)
--- NOTE | 2018-02-06 06:24 | P.HPOB ---
History of Present Illness H&P Date: 02/06/18 Chief Complaint: normal labor 28 year old presents at 40 weeks in labor. Her cervix was 7-8/100/-1. She says her water broke at 4:00 this morning, clear fluid. She was becka every 2 minutes. heart tones 130-135 with minimal variability. Review of Systems All systems: negative Constitutional: Denies chills, Denies fever Eyes: denies blurred vision, denies pain Ears, nose, mouth and throat: Denies headache, Denies sore throat Cardiovascular: Denies chest pain, Denies shortness of breath Respiratory: Denies cough Gastrointestinal: Denies abdominal pain, Denies diarrhea, Denies nausea, Denies vomiting Genitourinary: Denies dysuria, Denies hematuria Musculoskeletal: Denies myalgias Integumentary: Denies pruritus, Denies rash Neurological: Denies numbness, Denies weakness Psychiatric: Denies anxiety, Denies depression Endocrine: Denies fatigue, Denies weight change Past Medical History Past Medical History: No Reported History Additional Past Medical History / Comment(s): OBstetric history: First was a spontaneous second was a vaginal delivery at 40 weeks and 3 days, third vaginal delivery at 37 weeks and 4 days, this is her fourth . She's had care with Dr. Vu since 12 weeks gestation. Blood type is A+, and denies negative, rubella immune, hepatitis B surface antigen negative, RPR nonreactive, HIV nonreactive, GBS positive. History of Any Multi-Drug Resistant Organisms: None Reported Past Surgical History: No Surgical Hx Reported Past Anesthesia/Blood Transfusion Reactions: No Reported Reaction Past Psychological History: Depression Smoking Status: Never smoker Past Alcohol Use History: None Reported Past Drug Use History: None Reported - Past Family History Father Family Medical History: No Reported History Medications and Allergies Home Medications Medication Instructions Recorded Confirmed Type Pnv No.95/Ferrous Fum/Folic AC 1 each PO DAILY 02/05/18 02/06/18 History [ Multivitamin Tablet] Allergies Allergy/AdvReac Type Severity Reaction Status Date / Time No Known Allergies Allergy Verified 02/06/18 05:15 Exam Osteopathic Statement: *. No significant issues noted on an osteopathic structural exam other than those noted in the History and Physical/Consult. Vital Signs Temp Pulse Resp BP 02/06/18 05:20 98.6 F 95 16 133/72 Intake and Output 02/05/18 02/05/18 02/06/18 14:59 22:59 06:59 Other: Weight 97.522 kg Heart: Regular rate and rhythm Lungs: Clear to auscultation bilaterally Abdomen: Soft, nontender Extremities: Negative Homans sign Results Result Diagrams: 02/06/18 05:20 Abnormal Lab Results - Last 24 Hours (Table) 02/06/18 Range/Units 05:20 WBC 15.9 H (3.8-10.6) k/uL Neutrophils # 12.8 H (1.3-7.7) k/uL Assessment and Plan (1) Normal labor Current Visit: Yes Status: Acute Code(s): O80 - ENCOUNTER FOR FULL-TERM UNCOMPLICATED DELIVERY; Z37.9 - OUTCOME OF DELIVERY, UNSPECIFIED SNOMED Code(s ): 99753855 (2) Spontaneous rupture of membranes Current Visit: Yes Status: Acute Code(s): TRN2994 - SNOMED Code(s): 519905165 Plan: 1. Admit to family place 2. Expectant management 3. Anticipate normal vaginal delivery
--- NOTE | 2018-02-06 06:26 | P.PROBDLV ---
Vaginal Delivery Note - . Vaginal Delivery Note: 28-year-old presents at 40 weeks with [place] rupture of membranes and in labor. Her cervix is 7-8 cm dilated, her percent effaced, and -1 station. She says her water broke around 4 AM, clear fluid but there is a bulging bag. She is becka every 2 minutes. heart tones 130-135 with minimal variability. Therefore bag was ruptured and her cervix was complete at 5:46 AM. She pushed, and delivered a viable male over intact perineum at 5: 52 AM. Head delivered OA, anterior shoulder delivered gentle downward guidance followed by posterior shoulder and rest of body. Nose and mouth bulb suctioned , cord clamped and cut, placed mother's abdomen. Apgars 9, 9, weight 8 lbs. 5 oz. Placenta delivered spontaneously, intact with three-vessel cord at 5 :54 AM. Vagina, cervix, perineum inspected. Small laceration near the clitoris was repaired with 3-0 Vicryl. Estimated blood loss 200 mL. Mother and baby in stable condition.
[2018-02-06] MEDS ORDERED: diphenhydrAMINE 25 MG CAP PO PRN (06:35)
[2018-02-06] MEDS ORDERED: LANOLIN CREAM 5 GM TUBE TOPICAL PRN (06:35)
[2018-02-06] MEDS ORDERED: diphenhydrAMINE 50 MG CAP PO PRN (06:35)
[2018-02-06] MEDS ORDERED: ZOLPIDEM 5 MG TAB PO PRN (06:35)
[2018-02-06] MEDS ORDERED: ACETAMINOPHEN TAB 325 MG TAB PO PRN (06:35)
[2018-02-06] MEDS ORDERED: BENZOCAINE/MENTHOL SPRAY 1 GM/SPRAY AEROSOL TOPICAL PRN (06:35)
[2018-02-06] MEDS ORDERED: SIMETHICONE 80 MG CHEWABLE PO PRN (06:35)
[2018-02-06] MEDS ORDERED: WITCH HAZEL 1 EACH MED..PAD TOPICAL PRN (06:35)
[2018-02-06] MEDS ORDERED: HYDROCORTISONE 2.5% RECTAL CREAM 30 GM TUBE RECTAL PRN (06:35)
[2018-02-06] MEDS ORDERED: diphenhydrAMINE 50 MG/ML 1 ML VIAL IVP PRN ×2 (06:35)
[2018-02-06] MEDS ORDERED: OXYTOCIN 20 UNITS/1000 ML NS 1,000 ML IV SCH (06:45)
[2018-02-06] MEDS: IBUPROFEN 600 MG TAB PO PRN ×2 (06:48→20:19)
[2018-02-06] MEDS: SENNOSIDES-DOCUSATE SODIUM 1 EACH TAB PO SCH ×2 (09:01→19:31)
[2018-02-06] MEDS ORDERED: AMPICILLIN 1,000 MG in SODIUM CHLORIDE 0.9% 50 ML IVPB SCH (09:27)
[2018-02-07] MEDS: SENNOSIDES-DOCUSATE SODIUM 1 EACH TAB PO SCH ×2 (08:00→19:21)
--- NOTE | 2018-02-07 10:38 | P.PNOBGVD ---
Subjective - Subjective Principal diagnosis: day 1 Interval history: Overall doing very well. She is ambulating, voiding, and she is tolerating her diet. She voices no complaints. We'll plan discharged home in the morning as per her request. Patient reports: Reports appetite normal, Reports voiding normally, Reports pain well controlled, Reports ambulating normally : doing well Objective - Latest Vital Signs Latest vital signs: Vital Signs Temp Pulse Resp BP Pulse Ox 02/07/18 04:00 98 F 80 18 114/62 98 02/06/18 23:34 97.9 F 70 17 117/70 100 02/06/18 19:47 97.8 F 78 18 112/69 100 02/06/18 16:00 97.0 F L 68 18 123/73 100 02/06/18 12:00 98.1 F 84 18 121/77 98 Intake and Output 02/06/18 02/07/18 02/07/18 22:59 06:59 14:59 Other: # Voids 2 - Exam Lungs: bilateral: normal Chest: Normal S1, Normal S2 Extremities: Present: normal Abdomen: Present: normal appearance, soft Uterus: Present: normal, firm
[2018-02-07] MEDS: IBUPROFEN 600 MG TAB PO PRN (17:41)
[2018-02-07 23:55] VITALS: PULSE 70
[2018-02-08] MEDS: SENNOSIDES-DOCUSATE SODIUM 1 EACH TAB PO SCH ×2 (08:35→10:41)
[2018-02-08] MEDS: IBUPROFEN 600 MG TAB PO PRN (08:36)
[2018-02-08 08:55] VITALS: BP 121/72; RESP 18; TEMP 98.4
--- NOTE | 2018-02-08 10:47 | P.DS ---
Providers Date of admission: 02/06/18 05:07 Expected date of discharge: 02/08/18 Attending physician: Harry Vo Primary care physician: Stated None - Discharge Diagnosis(es) (1) Normal labor Current Visit: Yes Status: Resolved (2) Spontaneous rupture of membranes Current Visit: Yes Status: Resolved (3) Normal vaginal delivery Current Visit: Yes Status: Acute Hospital Course: Pt presented in active labor. She underwent normal vaginal delivery. HEr pp course was uncomplicated. She will be discharged home PPD #2 in stable condition to follow up with Dr Vo in 6 weeks. Plan - Discharge Summary New Discharge Prescriptions: New Ibuprofen [Motrin] 600 mg PO Q6HR PRN #30 tab PRN Reason: Pain No Action Pnv No.95/Ferrous Fum/Folic AC [ Multivitamin Tablet] 1 each PO DAILY Discharge Medication List Pnv No.95/Ferrous Fum/Folic AC [ Multivitamin Tablet] 1 each PO DAILY [History] Ibuprofen [Motrin] 600 mg PO Q6HR PRN #30 tab 02/07/18 [Rx] Follow up Appointment(s)/Referral(s): Harry Vo DO [Doctor of Osteopathic Medicine] - 6 Weeks Activity/Diet/Wound Care/Special Instructions: No heavy lifting, limit stairs and driving, and pelvic rest. If any high temperatures, heavy bleeding, or severe pain call my office Discharge Disposition: HOME SELF-CARE
== END 2018-02-08 14:06 | disposition home or self-care (01) | DRG 768 ==
LOC: FBPOP 04:50 → 4FBP 05:07
PROVIDERS: ADMIT Obstetrics & Gynecology; ATTEND Obstetrics & Gynecology
PROC: 10E0XZZ Delivery of Products of Conception, External Approach (ICD-10-PCS; principal; 2018-02-06)
PROC: 0UQJXZZ Repair Clitoris, External Approach (ICD-10-PCS; 2018-02-06)
DX: O70.0 First degree perineal laceration during delivery (principal); Z37.0 Single live birth; O99.824 Streptococcus B carrier state complicating childbirth; Z3A.40 40 weeks gestation of pregnancy; Z79.899 Other long term (current) drug therapy; Z86.59 Personal history of other mental and behavioral disorders
CPT/HCPCS: 85025; 86850; 86900; 86901

== ENCOUNTER → 2018-04-21 | Outpatient (CLI) | payer OTHER ==
[2018-04-21 16:59] LABS: Basophils # (A) 0.1 k/uL (0-0.2); Basophils % (A) 1 %; Eosinophils # (A) 0.1 k/uL (0-0.7); Eosinophils % (A) 2 %; HCT 41.9 % (34.0-46.0); HGB 13.8 gm/dL (11.4-16.0); Lymphocytes # (A) 2.5 k/uL (1.0-4.8); Lymphocytes % (A) 29 %; MCH 28.3 pg (25.0-35.0); MCV 85.8 fL (80.0-100.0); Mean Platelet Volume 6.7; Monocytes # (A) 0.5 k/uL (0-1.0); Monocytes % (A) 6 %; Neutrophils # (A) 5.3 k/uL (1.3-7.7); Neutrophils % (A) 62 %; Platelet Count 259 k/uL (150-450); RBC 4.88 m/uL (3.80-5.40); RDW 13.2 % (11.5-15.5); WBC 8.5 k/uL (3.8-10.6)
== END | disposition home or self-care (01) ==
LOC: LABWHC1 14:50
PROVIDERS: ATTEND Obstetrics & Gynecology
DX: Z01.812 Encounter for preprocedural laboratory examination (principal)
CPT/HCPCS: 36415; 85025

== ENCOUNTER → 2018-04-29 | Day surgery (SDC) | payer BC, OTHER ==
[2018-04-25 15:48] VITALS: BMI 34.3
--- NOTE | 2018-04-27 20:00 | P.HPOB ---
History of Present Illness H&P Date: 04/27/18 Chief Complaint: Family planning Deborah is a 28-year-old female who has completed her family planning and desires permanent sterilization. Risks/benefits/alternatives to a laparoscopic tubal occlusion were discussed with the patient in detail and all questions were answered for her prior to proceeding to the operative room. She is scheduled for a laparoscopic this tube ligation with the scopes. On physical exam vital signs are stable and afebrile. Heart regular, lungs clear, extremities without pain. Abdomen soft nontender. Positive bowel sounds are noted. Pelvic exam is otherwise unremarkable. Assessment family planning. Plan lap tubal with Filshie clips. Past Medical History Past Medical History: No Reported History Additional Past Medical History / Comment(s): CEREBELLAR ANGIOMA (DX 2010)., MIGRAINES., HX OF ENLARGED LYMPH NODE LEFT GROIN WITH SURGERY- STATES OCCASIONAL "FLARE-UP" OF ENLARGED LYMPH NODES IN HER GROINS., BABY BORN 02/06/18- BREAST FEEDING. History of Any Multi-Drug Resistant Organisms: None Reported Past Surgical History: No Surgical Hx Reported Additional Past Surgical History / Comment(s): LYMPH NODE REMOVED LEFT GROIN. Past Anesthesia/Blood Transfusion Reactions: No Reported Reaction Past Psychological History: Depression Additional Psychological History / Comment(s): DENIES PROBLEMS WITH DEPRESSION CURRENTLY. Smoking Status: Never smoker Past Alcohol Use History: None Reported Past Drug Use History: None Reported - Past Family History Father Family Medical History: No Reported History Medications and Allergies Home Medications Medication Instructions Recorded Confirmed Type Pnv No.95/Ferrous Fum/Folic AC 1 each PO DAILY 02/05/18 04/25/18 History [ Multivitamin Tablet] [id number] [id number] 1 each PO DIRECTED PRN 04/25/18 04/25/18 History [Excedrin] Allergies Allergy/AdvReac Type Severity Reaction Status Date / Time No Known Allergies Allergy Verified 04/25/18 15:25 Exam Osteopathic Statement: *. No significant issues noted on an osteopathic structural exam other than those noted in the History and Physical/Consult. - OBG Physical Exam Breast: both: normal (no masses) Abdomen: bowel sounds normal, no diffuse tenderness, no bruit present, no guarding noted, no hepatomegaly, no splenomegaly, no mass Vulva: both: normal Vagina: normal moisture, no discharge Cervix: no lesion, no discharge Uterus: normal size, normal contour Adnexa: both: normal Anus/Rectum: normal perianal skin, no rectal mass, no hemorrhoids, heme negative
[~2018-04-29] MED LIST: BUPIVACAINE-EPI 0.5%-1:200,000 10 ML VIAL SQ ONE; DEXAMETHASONE SOD PHOSPHATE 10 MG/ML 1 ML VIAL IV ONE; GLYCOPYRROLATE 0.2 MG/ML 2 ML VIAL ONE; IBUPROFEN 200 MG TAB PO ONE; KETOROLAC 30 MG/ML 1 ML VIAL ONE; LACTATED RINGERS 1,000 ML IV SCH; LIDOCAINE 1% 20 ML VIAL (10MG/ML) FOR IV START INTRADERMA PRN; LIDOCAINE 1% INJ 10MG/ML (20 ML MDV) ONE; MIDAZOLAM (PF) 2 MG/2 ML VIAL IV PRN; MIDAZOLAM 2 MG/2 ML VIAL ONE; NEOSTIGMINE 1 MG/ML 10 ML VIAL ONE; ONDANSETRON 4 MG/2 ML VIAL IVP ONE; PROPOFOL 10 MG/ML 20 ML VIAL IV ONE; Pre Op ABX Message 1 EACH MISC MISCELLANE ONE; ROCURONIUM BROMIDE 10 MG/ML 10 ML VIAL IV ONE; SCOPOLAMINE 1.5MG/72HR PATCH TRANSDERM ONE; fentaNYL (PF) 50 MCG/ML 2 ML AMP ONE
[2018-04-29 07:42] LABS: Glucose,Whole Blood 83 mg/dL (75-99)
[2018-04-29] MEDS: HYDROmorphone 0.5 MG/0.5 ML SYRINGE IVP PRN ×2 (08:21→08:26)
[2018-04-29] MEDS: fentaNYL (PF) 50 MCG/ML 2 ML AMP IVP ONE ×2 (08:29→08:51)
[2018-04-29 08:33] VITALS: TEMP 97.9
--- NOTE | 2018-04-29 09:10 | P.OP ---
Date of Procedure: 04/29/18 Preoperative Diagnosis: Family planning Postoperative Diagnosis: Same Procedure(s) Performed: Laparoscopic tubal occlusion with Filshie clips Anesthesia: SAYRA Surgeon: Harry Vo Estimated Blood Loss (ml): 4 IV fluids (ml): 500 Urine output (ml): 30 Pathology: none sent Condition: stable Disposition: same day Operative Findings: Normal female pelvic anatomy Description of Procedure: Patient was taken to the operating suite where a general anesthetic was found be adequate. She was prepped and draped in the normal sterile fashion and placed in dorsal lithotomy position. Initially a speculum was inserted into the vagina and the anterior lip of cervix was identified and grasped with an Allis clamp. It was then sounded to 8 cm and a uterine manipulator was inserted without difficulty. Once this was accomplished other incidents removed and a red rubber catheter was used to drain the bladder of urine. Gloves were then changed and attention was turned to the abdominal portion procedure where 2 mL of quarter percent Marcaine was injected periumbilically. Through this injected anesthetic a 5 mm skin incision was made and through this incision under direct visualization with an optical trocar and sleeve the camera was inserted. Once peritoneal placement was assured gas was left fully insufflate the abdomen and patient's placement steep Trendelenburg position. A second 8 mm skin incision was then made 3 cm above the pubic symphysis in the midline. Through this incision under direct visualization a second port and sleeve were inserted. Following this fallopian tubes and uterus were identified and first the right fallopian tube than the left fallopian tube had a Filshie clip applied 2 cm from uterine cornu. Once these were placed with no bleeding in the mesosalpinx, instruments were removed and gas was allowed to expel from the abdomen. 5 deep breaths were provided during this process. Once this was accomplished 4-0 Vicryl used to close incision subcuticularly and another 6 mL of quarter percent Marcaine was injected around the incisions. Incidents were then removed from the vagina. Sponge, lap, needle counts were all correct 2. Patient was then taken to the recovery room in stable and sat satisfactory condition. Plan - Discharge Summary New Discharge Prescriptions: New Ibuprofen [Motrin] 600 mg PO Q6HR PRN #30 tab PRN Reason: Pain HYDROcodone/APAP 5-325MG [[place] 5-325] 1 tab PO Q4HR PRN #30 tab PRN Reason: Pain No Action Pnv No.95/Ferrous Fum/Folic AC [ Multivitamin Tablet] 1 each PO DAILY [id number]-Tthn [id number] [Excedrin] 1 each PO DIRECTED PRN PRN Reason: Headache Discharge Medication List Pnv No.95/Ferrous Fum/Folic AC [ Multivitamin Tablet] 1 each PO DAILY 02/05/18 [History] Sftkfyt-Ruzr-Ulji [id number] [Excedrin] 1 each PO DIRECTED PRN 04/25/18 [History] HYDROcodone/APAP 5-325MG [[place] 5-325] 1 tab PO Q4HR PRN #30 tab 04/29/18 [Rx] Ibuprofen [Motrin] 600 mg PO Q6HR PRN #30 tab 04/29/18 [Rx] Patient Instructions/Handouts: *Surgery [facility] - (Anesthesia) Discharge Instructions Outpatient Surgery, Tubal Ligation (DC) Discharge Disposition: HOME SELF-CARE
[2018-04-29 10:31] VITALS: BP 126/80; PULSE 105; RESP 18
== END | disposition home or self-care (01) ==
LOC: OR 06:33
PROVIDERS: ATTEND Obstetrics & Gynecology
DX: Z30.2 Encounter for sterilization (principal); Z86.011 Personal history of benign neoplasm of the brain; Z79.899 Other long term (current) drug therapy
CPT/HCPCS: 81025; 58671; J2250; J1100; J2710; J2405; J2001; J3010; J1885; J2704; J1170

== ENCOUNTER → 2019-03-07 | Outpatient (CLI) | payer OTHER ==
--- NOTE | 2019-03-07 13:36 | US ---
EXAMINATION TYPE: US pelvic complete DATE OF EXAM: 03/07/2019 COMPARISON: CT May 20, 2016 CLINICAL HISTORY: R10.2 Pelvic pain. Intermittent sharp pelvic pain x 10 months since getting tubal l igation, 3, para 3 TECHNIQUE: . Transabdominal sonographic images of the pelvis were acquired. Date of LMP: Patient unsure EXAM MEASUREMENTS: Uterus: 8.4 x 4.9 x 5.3 cm Endometrial Stripe: 1.2 cm Right Ovary: 3.1 x 2.2 x 1.5 cm Left Ovary: 2.4 x 1.9 x 2.6 cm 1. Uterus: wnl 2. Endometrium: fluid seen within fundal portion of endo 3. Right Ovary: wnl 4. Left Ovary: wnl 5. Bilateral Adnexa: wnl 6. Posterior cul-de-sac: free fluid Uterus is heterogeneous and slightly prominent with lobulated margins. Trilaminar endometrial stripe measuring up to 12 mm. Trace fluid in the endometrial canal near the fundus at 4 mm. No surrounding d ecidual reaction. Small to moderate amount of free fluid in pelvic cul-de-sac. Both ovaries identified with scattered tiny peripheral follicles. No suspicious adnexal masses bilate rally. IMPRESSION: Small to moderate amount of free fluid in pelvic cul-de-sac is nonspecific finding.
== END | disposition home or self-care (01) ==
LOC: RADUSWWP 12:13
PROVIDERS: ATTEND Obstetrics & Gynecology
DX: R93.41 Abnormal radiologic findings on diagnostic imaging of renal pelvis, ureter, or bladder (principal)
CPT/HCPCS: 76856

== ENCOUNTER 2019-10-14 10:47 | Emergency (ER) | payer OTHER ==
[2019-10-14 10:54] VITALS: BP 105/56; PULSE 71; RESP 18; TEMP 98.8
--- NOTE | 2019-10-14 11:35 | CT ---
EXAMINATION TYPE: CT brain raymundoine wo con DATE OF EXAM: 10/14/2019 COMPARISON: Brain 11/29/2002 HISTORY: 29-year-old female fall with posterior head trauma, dizziness, nausea CT DLP: 1469.8 mGycm Automated exposure control for dose reduction was used. Technique: Examination of the head was done in axial plane without intravenous contrast. Coronal and sagittal reconstructions performed. CT of the cervical spine was obtained in axial plane without intravenous injection of contrast mater ial. Coronal and sagittal reformatted images were obtained from the axial views for evaluation of f ractures, spinal alignment and canal. FINDINGS: Head: There is no evidence of acute intracranial hemorrhage, acute ischemic changes, mass, mass-effect, or extra-axial fluid collection. There is no effacement of cerebral sulci or basal subarachnoid cister ns. There is no hydrocephalus. There is no midline shift. Mcghee-white matter distinction is preserv ed. Paranasal sinuses and mastoid air cells well pneumatized. Orbits and globes are intact. Cervical spine: The alignment of the cervical spine is normal on coronal and reformatted images. There is no cranial vertebral abnormality. Fracture of the cervical spine is not seen. Reversal of the normal cervical lo rdosis. Assessment of the spinal canal from C5-C6 and below is limited due to artifact from the patie nt's shoulders. Disc interspaces are maintained. Incidental bilateral palatine tonsillar hypertrophy. Sagittal and coronal reformatted images confirm above findings. COMBINED IMPRESSION: 1. No acute intracranial abnormality seen. 2. No acute fracture or malalignment of the cervical spine. Reversal of the normal cervical lordosis could be positional or due to muscle spasm.
--- NOTE | 2019-10-14 11:41 | ED ---
General Adult HPI - General Chief complaint: Head Injury Stated complaint: head injury, dizziness Time Seen by Provider: 10/14/19 10:58 Source: patient, RN notes reviewed Mode of arrival: ambulatory Limitations: no limitations - History of Present Illness Initial comments: 29-year-old female presents for headache injury. Patient states she slipped and fell 2 days ago and hit the back of her head. States this is on a carpeted floor over the carpet is thin. Patient reports that she did possibly lose consciousness for several seconds. Patient states that she was seen at [facility] in the wanted her to stay have a CAT scan performed but she refused. However patient wasn't feeling better this morning so she came to the ER for CAT scan. Patient reports headache and nausea and light sensitivity. Patient denies neck pain. Patient denies any chance of . Patient has no other complaints at this time including shortness of breath, chest pain, abdominal pain, or visual changes. - Related Data Home Medications Medication Instructions Recorded Confirmed Pnv No.95/Ferrous Fum/Folic AC 1 each PO DAILY 02/05/18 04/25/18 [ Multivitamin Tablet] [id number] 1 each PO DIRECTED PRN 04/25/18 04/25/18 [Excedrin] Previous Rx's Medication Instructions Recorded HYDROcodone/APAP 5-325MG [[place] 1 tab PO Q4HR PRN #30 tab 04/29/18 5-325] Ibuprofen [Motrin] 600 mg PO Q6HR PRN #30 tab 04/29/18 Ondansetron [Zofran ODT] 4 mg PO Q8HR PRN #15 tab 10/14/19 Allergies Allergy/AdvReac Type Severity Reaction Status Date / Time No Known Allergies Allergy Verified 10/14/19 10:50 Review of Systems ROS Statement: Those systems with pertinent positive or pertinent negative responses have been documented in the HPI. ROS Other: All systems not noted in ROS Statement are negative. Past Medical History Past Medical History: No Reported History Additional Past Medical History / Comment(s): OBstetric history: First was a spontaneous second was a vaginal delivery at 40 weeks and 3 days, third vaginal delivery at 37 weeks and 4 days, this is her fourth . She's had care with Dr. Vu since 12 weeks gestation. Blood type is A+, and denies negative, rubella immune, hepatitis B surface antigen negative, RPR nonreactive, HIV nonreactive, GBS positive. History of Any Multi-Drug Resistant Organisms: None Reported Past Surgical History: Tubal Ligation Additional Past Surgical History / Comment(s): lymph node removal Past Anesthesia/Blood Transfusion Reactions: No Reported Reaction Past Psychological History: Anxiety, Depression Smoking Status: Current some day smoker Past Alcohol Use History: Occasional Past Drug Use History: None Reported, Marijuana - Past Family History Father Family Medical History: No Reported History General Exam Limitations: no limitations General appearance: alert, in no apparent distress Head exam: Present: atraumatic (I do not see any hematomas or evidence of trauma noted to the calvarium.), normocephalic, normal inspection Eye exam: Present: normal appearance, PERRL, EOMI. Absent: scleral icterus, conjunctival injection, periorbital swelling ENT exam: Present: normal exam, mucous membranes moist Neck exam: Present: normal inspection, full ROM. Absent: tenderness, meningismus, lymphadenopathy Respiratory exam: Present: normal lung sounds bilaterally. Absent: respiratory distress, wheezes, rales, rhonchi, stridor Cardiovascular Exam: Present: regular rate, normal rhythm, normal heart sounds. Absent: systolic murmur, diastolic murmur, rubs, gallop, clicks GI/Abdominal exam: Present: soft, normal bowel sounds. Absent: distended, tenderness, guarding, rebound, rigid Neurological exam: Present: alert, oriented X3, normal gait, other (GCS 15) Expanded Patient oriented to: Present: person, place, time Speech: Present: fluid speech Cranial nerves: EOM's Intact: Normal, Tongue Deviation: Normal, Nystagmus: Normal, Facial Sensation: Normal Cerebellar function: Finger to Nose: Normal Upper motor neuron: Pronator Drift: Normal Sensory exam: Upper Extremity Light Touch: Normal, Upper Extremity Pin Prick: Normal, Lower Extremity Light Touch: Normal, Lower Extremity Pin Prick: Normal Motor strength exam: RUE: 5, LUE: 5, RLE: 5, LLE: 5 Eye Response: (4) open spontaneously Motor Response: (6) obeys commands Verbal Response: (5) oriented [place] Total: 15 Course Vital Signs 10/14/19 10:51 Temperature 98.8 F Pulse Rate 71 Respiratory 18 Rate Blood Pressure 105/56 O2 Sat by Pulse 97 Oximetry Medical Decision Making - Medical Decision Making HPI and physical exam is documented. Patient is well appearing, sitting up in bed. No focal neurologic deficits. CT brain shows no acute intracranial abnormalities. CT cervical spine shows no acute fracture or malalignment. Patient likely experiencing symptoms of concussion. Patient will follow-up with her doctor. She'll return here for any worsening symptoms. Disposition Clinical Impression: Head injury Disposition: HOME SELF-CARE Condition: Good Instructions (If sedation given, give patient instructions): Concussion (ED) Additional Instructions: Please take Motrin and Tylenol for pain. Take Zofran as needed for nausea. Follow-up with your doctor in one to 2 days. If you have any worsening symptoms return to the emergency room. Prescriptions: Ondansetron [Zofran ODT] 4 mg PO Q8HR PRN #15 tab PRN Reason: Nausea Is patient prescribed a controlled substance at d/c from ED?: No Referrals: Thea Madden DO [Primary Care Provider] - 1-2 days Time of Disposition: 11:41
== END 2019-10-14 11:58 | disposition home or self-care (01) ==
LOC: EC 10:47
DX: S09.90XA Unspecified injury of head, initial encounter (principal); F17.200 Nicotine dependence, unspecified, uncomplicated; W01.198A Fall on same level from slipping, tripping and stumbling with subsequent striking against other object, initial encounter
CPT/HCPCS: 70450; 72125; 99283

== ENCOUNTER 2020-06-15 20:33 | Emergency (ER) | payer OTHER ==
[2020-06-15 20:42] VITALS: BP 123/80; PULSE 90; RESP 20; TEMP 98.1
[2020-06-15] MEDS ORDERED: PROPARACAINE 0.5% OPHTH DROPS 15 ML BTL LEFT EYE STA (20:50)
[2020-06-15] MEDS ORDERED: FLUORESCEIN STRIPS 1 MG STRIP LEFT EYE ONE (20:51)
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
[2020-06-15] MEDS ORDERED: TOBRAMYCIN 0.3% OPHTH DROPS 5 ML BTL LEFT EYE STA (21:41)
== END 2020-06-15 22:02 | disposition home or self-care (01) ==
LOC: EC 20:33
DX: S00.12XA Contusion of left eyelid and periocular area, initial encounter (principal); H11.32 Conjunctival hemorrhage, left eye; R20.2 Paresthesia of skin; F17.200 Nicotine dependence, unspecified, uncomplicated; Y04.8XXA Assault by other bodily force, initial encounter
CPT/HCPCS: 70486; 99283

== ENCOUNTER → 2020-08-12 | Outpatient (CLI) | payer OTHER ==
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
== END | disposition home or self-care (01) ==
LOC: RADMRIMAIN 06:17
PROVIDERS: ATTEND Psychiatry & Neurology Neurology
DX: G44.321 Chronic post-traumatic headache, intractable (principal)
CPT/HCPCS: 70553; A9585

== ENCOUNTER → 2020-12-06 | Outpatient (CLI) | payer OTHER ==
--- NOTE | 2020-12-06 10:02 | US ---
EXAMINATION TYPE: US pelvic complete DATE OF EXAM: 12/06/2020 COMPARISON: US CLINICAL HISTORY: R10.2 PELVIC PAIN. Intermittent bilateral pelvic pain x 1.5 years; ; Tubal liga tion 2 years ago. TECHNIQUE: Transabdominal (TA). Transabdominal sonographic images of the pelvis were acquired. Date of LMP: unknown EXAM MEASUREMENTS: Uterus: 7.8 x 6.3 x 3.6 cm Endometrial Stripe: 0.9 cm Right Ovary: 3.9 x 2.8 x 1.6 cm Left Ovary: 3.0 x 1.9 x 1.7 cm 1. Uterus: Anteverted 2. Endometrium: thickness appears wnl 3. Right Ovary: multiple small follicles with largest = 0.5 x .0.6 x 0.4cm 4. Left Ovary: multiple small follicles seen with largest = 0.8 x 0.6 x 0.7cm. Spectral, color and waveform doppler imaging shows good arterial and venous flow within the ovaries ; there is no evidence for ovarian torsion. 5. Bilateral Adnexa: wnl 6. Posterior cul-de-sac: moderate amount of free fluid seen = 2.0 x 2.9 x 1.1 x 0.523 = 3.3ml. 7. Hyperechoic focus noted in each area of Fallopian Tube may be tubal ligation clips. IMPRESSION: 1 moderate free fluid within the cul-de-sac. 2. Multiple bilateral ovarian follicles.
== END | disposition home or self-care (01) ==
LOC: RADUSWWP 09:04
PROVIDERS: ATTEND Obstetrics & Gynecology
DX: N83.00 Follicular cyst of ovary, unspecified side (principal)
CPT/HCPCS: 76856

== ENCOUNTER → 2021-03-08 | Outpatient (CLI) | payer OTHER ==
[2021-03-08 16:42] LABS: Basophils # (A) 0.04 X 10*3/uL (0.00-0.10); Basophils % (A) 0.4 %; Eosinophils # (A) 0.13 X 10*3/uL (0.04-0.35); Eosinophils % (A) 1.4 %; HCT 38.9 % (37.2-46.3); Lymphocytes # (A) 2.13 X 10*3/uL (0.90-5.00); Lymphocytes % (A) 22.7 %; MCH 29.8 pg (27.0-32.0); MCHC 33.4 g/dL (32.0-37.0); MCV 89.2 fL (80.0-97.0); Mean Platelet Volume 10.5 fL (9.5-12.2); Monocytes % (A) 6.4 %; Neutrophils # (A) 6.45 X 10*3/uL (1.80-7.70); Neutrophils % (A) 68.8 %; Platelet Count 260 X 10*3/uL (140-440); RBC 4.36 X 10*6/uL (4.10-5.20); RDW 12.3 % (11.5-14.5); WBC 9.38 X 10*3/uL (4.50-10.00)
== END ==
LOC: LABPAT 10:38
PROVIDERS: ATTEND Obstetrics & Gynecology
DX: Z01.812 Encounter for preprocedural laboratory examination (principal)
CPT/HCPCS: 36415; 85025

== ENCOUNTER 2021-03-13 10:04 | Day surgery (SDC) | payer OTHER ==
[2021-03-07 16:54] VITALS: BMI 30.9
--- NOTE | 2021-03-12 12:59 | P.HPOB ---
History of Present Illness H&P Date: 03/12/21 Chief Complaint: Cervical dysplasia: Pelvic pain Deborah is a 31-year-old female with prior to ligation with Filshie clips, due to pain she would like Filshie clips removed as well as concern over possible endometriosis which if present would plan collected for fulguration versus taking pictures and sending her to pelvic pain center. She also has a high- grade squamous intra-pill lesion on her cervix for which she is scheduled for a LEEP colposcopy. Surgical procedure is diagnostic laparoscopy possible removal of fallopian tubes versus elective fulguration of endometriosis and/or opening to if there is any concern over not being occluded following removal of her Kaleigh hie clips. Risks/benefits/versus procedure were reviewed with the patient in detail and did include but were not limited to bleeding and infection, damage to bladder bladder or bowel, vascular disease, nerve injuries, ureteral damage and potential need for other surgeries. She is also aware that she will need yearly Pap smears due to her precancerous changes on her cervix. Past Medical History Past Medical History: No Reported History Additional Past Medical History / Comment(s): OBstetric history: First was a spontaneous second was a vaginal delivery at 40 weeks and 3 days, third vaginal delivery at 37 weeks and 4 days, this is her fourth . She's had care with Dr. Vu since 12 weeks gestation. Blood type is A+, and denies negative, rubella immune, hepatitis B surface antigen negative, RPR nonreactive, HIV nonreactive, GBS positive. History of Any Multi-Drug Resistant Organisms: None Reported Past Surgical History: Tubal Ligation Additional Past Surgical History / Comment(s): lymph node removal Past Anesthesia/Blood Transfusion Reactions: No Reported Reaction Smoking Status: Never smoker - Past Family History Father Family Medical History: No Reported History Medications and Allergies Home Medications Medication Instructions Recorded Confirmed Type Atomoxetine HCl [Strattera] 25 mg PO DAILY PRN 03/07/21 03/07/21 History Allergies Allergy/AdvReac Type Severity Reaction Status Date / Time No Known Allergies Allergy Verified 03/07/21 16:41 Exam Osteopathic Statement: *. No significant issues noted on an osteopathic structural exam other than those noted in the History and Physical/Consult. - OBG Physical Exam Breast: both: normal (no masses) Abdomen: bowel sounds normal, no diffuse tenderness, no bruit present, no guarding noted, no hepatomegaly, no splenomegaly, no mass Vulva: both: normal Vagina: normal moisture, no discharge Cervix: no lesion, no discharge Uterus: normal size, normal contour Adnexa: both: normal Anus/Rectum: normal perianal skin, no rectal mass, no hemorrhoids, heme negative
[~2021-03-13 10:04] MED LIST changes: -BUPIVACAINE-EPI 0.5%-1:200,000 10 ML VIAL SQ ONE; -DEXAMETHASONE SOD PHOSPHATE 10 MG/ML 1 ML VIAL IV ONE; +DEXAMETHASONE SOD PHOSPHATE 4 MG/ML 1 ML VIAL IV ONE; -GLYCOPYRROLATE 0.2 MG/ML 2 ML VIAL ONE; -IBUPROFEN 200 MG TAB PO ONE; -KETOROLAC 30 MG/ML 1 ML VIAL ONE; -LIDOCAINE 1% 20 ML VIAL (10MG/ML) FOR IV START INTRADERMA PRN; -LIDOCAINE 1% INJ 10MG/ML (20 ML MDV) ONE; -MIDAZOLAM (PF) 2 MG/2 ML VIAL IV PRN; +MIDAZOLAM 2 MG/2 ML VIAL IV PRN; -MIDAZOLAM 2 MG/2 ML VIAL ONE; -NEOSTIGMINE 1 MG/ML 10 ML VIAL ONE; -PROPOFOL 10 MG/ML 20 ML VIAL IV ONE; -Pre Op ABX Message 1 EACH MISC MISCELLANE ONE; -ROCURONIUM BROMIDE 10 MG/ML 10 ML VIAL IV ONE; -fentaNYL (PF) 50 MCG/ML 2 ML AMP ONE
[2021-03-13] MEDS: HYDROmorphone 0.5 MG/0.5 ML SYRINGE IVP PRN ×2 (11:01→13:35)
[2021-03-13] MEDS ORDERED: PROPOFOL 10 MG/ML 20 ML VIAL IV ONE (11:44)
[2021-03-13] MEDS ORDERED: SUCCINYLCHOLINE CHLORIDE 100 MG/5 ML SYR IV ONE (11:44)
[2021-03-13] MEDS ORDERED: fentaNYL (PF) 50 MCG/ML 2 ML AMP ONE (11:44)
[2021-03-13] MEDS ORDERED: GLYCOPYRROLATE 0.2 MG/ML 2 ML VIAL ONE (11:44)
[2021-03-13] MEDS ORDERED: ROCURONIUM 10 MG/ML (5 ML VIAL) IV ONE (11:44)
[2021-03-13] MEDS ORDERED: NEOSTIGMINE 1 MG/ML 10 ML VIAL ONE (11:44)
[2021-03-13] MEDS ORDERED: HYDROmorphone (PF) 1 MG/ML ONE (11:44)
[2021-03-13] MEDS ORDERED: MIDAZOLAM 2 MG/2 ML VIAL ONE (11:44)
[2021-03-13] MEDS ORDERED: LIDOCAINE 1% INJ 10MG/ML (20 ML MDV) ONE (11:44)
[2021-03-13] MEDS ORDERED: BUPIVACAINE (PF) 0.25% 30 ML VIAL SQ ONE ×2 (12:22)
[2021-03-13] MEDS ORDERED: IODINE/POTASS IOD (LUGOLS) BOTTLE TOPICAL ONE (12:32)
[2021-03-13 12:53] VITALS: TEMP 97
--- NOTE | 2021-03-13 12:59 | P.OP ---
Date of Procedure: 03/13/21 Preoperative Diagnosis: Cervical dysplasia, pelvic pain, questionable dislodged Filshie clip Postoperative Diagnosis: Same but Filshie clips noted in place Procedure(s) Performed: Diagnostic laparoscopy with removal Filshie clips and Kleppinger to cauterize fallopian tube. LEEP colposcopy Anesthesia: SAYRA Surgeon: Harry Vo Estimated Blood Loss (ml): 5 IV fluids (ml): 500 Urine output (ml): 50 Pathology: other (Echo an endocervical pieces) Condition: stable Disposition: same day Operative Findings: No endometriosis or other abnormality found on diagnostic laparoscopy tissue pathology pending from [facility] Description of Procedure: Patient was taken to the operating suite where a general anesthetic was found be adequate. She was prepped and draped in normal sterile fashion and placed in dorsal lithotomy position. Initially a speculum inserted in the vagina into lip cervix identified and grasped with an Allis clamp. Cervix was then dilated and a uterine manipulator was inserted without difficulty. Red rubber catheter was then used to drain the bladder of urine and other instruments as well as catheter were removed. Close were changed and attention was turned to abdominal portion procedure were 2 mL of quarter Marcaine was injected. Umbilical. Through this injected anesthetic a 5 Lemus skin incision was made and through this incision, under direct visualization with an optical trocar and sleeve the camera was inserted. Once peritoneal placed was assured gas was allowed to fully insufflate the abdomen and patient was placed in Trendelenburg position. A second port and sleeve were then inserted through a 1 cm incision 3 cm above the symphysis. This was inserted under direct visualization. Initial observations Stockett noted. Foot posterior lips appeared on the fallopian tubes. Physical were grasped and with gentle traction removed. Eppinger was then inserted and burning in 3 separate locations approximately half centimeters apart the Kleppinger was a applied and what fulguration was done. Once this was completed Kleppinger was removed and a wanted was placed in the abdomen and no evidence of endometriosis was noted we inspected thoroughly the posterior cul- de-sac as well as periovarian areas as well as the anterior tissues anterior to the bladder and no endometriosis is present. Uterus appears firm no evidence of adenomyosis was suspected. Therefore all incidents removed gas allowed to expel the abdomen. 5 deep breaths were provided during this process. Once completed 4-0 Vicryl used to close incision subcuticularly and another 4 5 mL of quarter percent Marcaine was injected around these incisions. Attention was then returned to the vagina where the uterine manipulator was removed and a coated speculum was inserted. Cervix identified and covered with Lugol's and then using a 2 cm loop a LEEP was performed. This piece was pathologies ectocervix and then using a 1 cm loop an endocervical hat portion was collected. Electrocautery on a ball-tipped was then do used to obtain excellent hemostasis and then all incidents removed. Sponge lap, needle counts were all correct 2 and patient was then taken to the recovery room in stable and satisfactory condition. Plan - Discharge Summary Discharge Rx Participant: No New Discharge Prescriptions: New Acetaminophen-Codeine 300-30mg [Tylenol #3] 1 tab PO Q4H PRN #30 tablet PRN Reason: Pain Ibuprofen [Motrin] 600 mg PO Q6HR PRN #30 tab PRN Reason: Pain No Action Atomoxetine HCl [Strattera] 25 mg PO DAILY PRN PRN Reason: ATTENTION Discharge Medication List Atomoxetine HCl [Strattera] 25 mg PO DAILY PRN 03/07/21 [History] Acetaminophen-Codeine 300-30mg [Tylenol #3] 1 tab PO Q4H PRN #30 tablet 03/13/21 [Rx] Ibuprofen [Motrin] 600 mg PO Q6HR PRN #30 tab 03/13/21 [Rx] Follow up Appointment(s)/Referral(s): Harry Vo DO [Doctor of Osteopathic Medicine] - 1 Week Activity/Diet/Wound Care/Special Instructions: No heavy lifting, limit stairs and driving, and pelvic rest. If any high temper atures, heavy bleeding, or severe pain call my office Discharge Disposition: HOME SELF-CARE
[2021-03-13] MEDS ORDERED: KETOROLAC 15 MG/ML 1 ML VIAL IVP ONE (13:37)
[2021-03-13] MEDS ORDERED: LACTATED RINGERS 1,000 ML IV ONE (14:48)
[2021-03-13 15:07] VITALS: RESP 16
[2021-03-13] MEDS ORDERED: ACETAMINOPHEN TAB 500 MG TAB ONE (16:44)
[2021-03-13] MEDS ORDERED: SIMETHICONE 40 MG/0.6 ML DROPS 2,000 MG/30 ML BOTTLE PO ONE (16:45)
[2021-03-13] MEDS ORDERED: ACETAMINOPHEN TAB 500 MG TAB PO ONE (16:45)
[2021-03-13 17:04] VITALS: BP 121/76; PULSE 72
== END 2021-03-13 17:24 | disposition home or self-care (01) ==
LOC: OR 10:04
PROVIDERS: ATTEND Obstetrics & Gynecology
DX: N87.9 Dysplasia of cervix uteri, unspecified (principal); T83.428A Displacement of other prosthetic devices, implants and grafts of genital tract, initial encounter
CPT/HCPCS: 57460; 49320; 81025; 88305; 88307; J2250; J2710; J0690; J2405; J2001; J3010; J1170 ×2; J1885; J0330; J2704

== ENCOUNTER 2022-05-03 11:28 | Emergency (ER) | payer OTHER ==
[2022-05-03] MEDS ORDERED: KETOROLAC 15 MG/ML 1 ML VIAL IM STA (11:45)
--- NOTE | 2022-05-03 12:22 | XR ---
EXAMINATION TYPE: XR ankle complete 3 views LT, XR foot complete 3 views LT DATE OF EXAM: 05/03/2022 Comparison: None Clinical History: 32-year-old female rolled ankle injury, pain, fall Findings: Ankle: Ankle mortise is congruent with preservation of the distal tibiofibular overlap. Talar dome is intact . Subtalar joint align. No delineation to the Achilles tendon. Foot: There is very subtle bony irregularity along the distal lateral aspect of the calcaneus that could be superimposition shadow. Otherwise, no acute fracture, subluxation, or dislocation seen. Impression: 1. Ankle: No acute osseous abnormality seen. 2. Foot: Subtle irregularity along the distal lateral margin of the calcaneus only on the AP view. Pr obably summation artifact. Correlate for any point tenderness here to exclude a subtle chip fracture.
--- NOTE | 2022-05-03 12:59 | ED ---
Lower Extremity Injury HPI - General Chief Complaint: Extremity Injury, Lower Stated Complaint: lt foot injury Time Seen by Provider: 05/03/22 11:41 Source: patient Mode of arrival: ambulatory Limitations: no limitations - History of Present Illness Initial Comments: Patient is a 32-year-old female presenting with chief complaint of left-sided ankle pain. Patient slipped and fell with the foot in inversion. She felt a crack. She is complaining of pain on the lateral portion of the ankle and on the dorsal portion of the foot. No numbness or tingling. There is a bit of swelling. No discoloration. - Related Data Home Medications Medication Instructions Recorded Confirmed Atomoxetine HCl [Strattera] 25 mg PO DAILY PRN 03/07/21 03/13/21 Previous Rx's Medication Instructions Recorded Acetaminophen-Codeine 300-30mg 1 tab PO Q4H PRN #30 tablet 03/13/21 [Tylenol #3] Ibuprofen [Motrin] 600 mg PO Q6HR PRN #30 tab 03/13/21 Allergies Allergy/AdvReac Type Severity Reaction Status Date / Time No Known Allergies Allergy Verified 05/03/22 11:41 Review of Systems ROS Statement: Those systems with pertinent positive or pertinent negative responses have been documented in the HPI. ROS Other: All systems not noted in ROS Statement are negative. Past Medical History Past Medical History: No Reported History Additional Past Medical History / Comment(s): OBstetric history: First was a spontaneous second was a vaginal delivery at 40 weeks and 3 days, third vaginal delivery at 37 weeks and 4 days, this is her fourth . She's had care with Dr. Vu since 12 weeks gestation. Blood type is A+, and denies negative, rubella immune, hepatitis B surface antigen negative, RPR nonreactive, HIV nonreactive, GBS positive. History of Any Multi-Drug Resistant Organisms: None Reported Past Surgical History: Tubal Ligation Additional Past Surgical History / Comment(s): lymph node removal, nose surgery Past Anesthesia/Blood Transfusion Reactions: No Reported Reaction Past Psychological History: ADD/ADHD Smoking Status: Never smoker Past Alcohol Use History: Rare Past Drug Use History: Marijuana - Past Family History Father Family Medical History: No Reported History General Exam Limitations: no limitations General appearance: alert, in no apparent distress Head exam: Present: atraumatic, normocephalic, normal inspection Eye exam: Present: normal appearance Neck exam: Present: normal inspection, full ROM Left Ankle exam: Present: tenderness, swelling. Absent: full ROM Foot/Toe exam: Present: tenderness, swelling Neurovascular tendon exam: Present: no vascular compromise Neurological exam: Present: alert, oriented X3, CN II-XII intact Psychiatric exam: Present: normal affect, normal mood Skin exam: Present: warm, dry, intact, normal color. Absent: rash Course Vital Signs 05/03/22 05/03/22 11:37 13:32 Temperature 98.2 F 98 F Pulse Rate 89 81 Respiratory 18 16 Rate Blood Pressure 105/72 108/76 O2 Sat by Pulse 98 98 Oximetry Procedures - Orthopedic Splinting/Casting Injury #1 Side: left Lower Extremity Injury Location: foot Lower Extremity Immobilizer: posterior splint, stirrup splint Other Orthopedic Equipment: crutches Medical Decision Making - Medical Decision Making Was pt. sent in by a medical professional or institution (, [facility], [facility], urgent care, hospital, or prison...) When possible be specific @ -No Did you speak to anyone other than the patient for history (EMS, parent, family, police, friend...)? What history was obtained from this source @ -No Did you review nursing and triage notes (agree or disagree)? Why? @ -I reviewed and agree with nursing and triage notes Were old charts reviewed (outside hosp., previous admission, EMS record, old EKG, old radiological studies, urgent care reports/EKG's, prison records)? Report findings @ -No old charts were reviewed Differential Diagnosis (chest pain, altered mental status, abdominal pain women, abdominal pain men, vaginal bleeding, weakness, fever, dyspnea, syncope, headache, dizziness, GI bleed, back pain, seizure, CVA, palpatations, mental health, musculoskeletal)? @ -Differential Musculoskeletal Muscular strain, contusion, ligament sprain, fracture, arthritis, septic arthritis, bursitis, cellulitis, muscle spasm, nerve compression, DVT, arterial occlusion, herpes zoster, electrolyte abnormality, tumor.... This is not meant to be in all inclusive list EKG interpreted by me (3pts min.). @ -As above X-rays interpreted by me (1pt min.). @ -Subtle irregularity along the distal lateral margin of the calcaneus only on the AP view. Correlate for any point tenderness here to exclude a subtle chip fracture CT interpreted by me (1pt min.). @ -None done U/S interpreted by me (1pt. min.). @ -None done What testing was considered but not performed or refused? (CT, X-rays, U/S, labs)? Why? @ -None What meds were considered but not given or refused? Why? @ -None Did you discuss the management of the patient with other professionals (professionals i.e. , PA, [facility], lab, RT, psych nurse, social contact worker, cotton farmworker, teacher, legal compliance officer, leather case finisher)? Give summary @ -No Was smoking cessation discussed for >3mins.? @ -No Was critical care preformed (if so, how long)? @ -No Were there social determinants of health that impacted care today? How? (Gurmeet elessness, low income, unemployed, alcoholism, drug addiction, transportation, low edu. Level, literacy, decrease access to med. care, shelter, rehab)? @ -No Was there de-escalation of care discussed even if they declined (Discuss DNR or withdrawal of care, Hospice)? DNR status @ -No What co-morbidities impacted this encounter? (DM, HTN, Smoking, COPD, CAD, Cancer, CVA, ARF, Chemo, Hep., AIDS, mental health diagnosis, sleep apnea, morbid obesity)? @ -None Was patient admitted / discharged? Hospital course, mention meds given and route, prescriptions, significant lab abnormalities, going to OR and other pertinent info. @ -Patient is a 32-year-old female presenting with chief complaint of left foot and ankle pain after trip and fall today. On physical examination there is tenderness to the dorsal portion of the foot. X-ray suggests chip fracture. Patient is educated on these findings. She is placed in a stirrup splint and instructed to follow up with orthopedics. Educated on supportive treatment. Follow-up with PCP. Report back to ER with any new or worsening symptoms. Discussed return parameters and answered all questions. Patient conveyed verbal understanding and agreed to the plan. I discussed this case in detail with my attending Dr. Oh Undiagnosed new problem with uncertain prognosis? @ -No Drug Therapy requiring intensive monitoring for toxicity (Heparin, Nitro, Insulin, Cardizem)? @ -No Were any procedures done? @ -No Diagnosis/symptom? @ -Calcaneal chip fracture Acute, or Chronic, or Acute on Chronic? @ -Acute Uncomplicated (without systemic symptoms) or Complicated (systemic symptoms)? @ -Uncomplicated Side effects of treatment? @ -No Exacerbation, Progression, or Severe Exacerbation? @ -No Poses a threat to life or bodily function? How? (Chest pain, [place], [place], pneumonia, PE, COPD, DKA, ARF, appy, cholecystitis, CVA, Diverticulitis, Homicidal, Suicidal, threat to staff... and all critical care pts) @ -No Disposition Clinical Impression: Calcaneal fracture Narrative: chip fracture Disposition: HOME SELF-CARE Condition: Good Instructions (If sedation given, give patient instructions): Foot Fracture in Adults (ED) Additional Instructions: Follow up with orthopedics. Report back to ER with any new or worsening symptoms. Take Motrin and Tylenol as needed for pain control. Rest, ice, and elevation is suggested. Remain nonweightbearing. Is patient prescribed a controlled substance at d/c from ED?: No Referrals: Placido Valladares MD [Primary Care Provider] - 1-2 days Danny Degroot DO [Doctor of Osteopathic Medicine] - 1-2 days Time of Disposition: 12:58
[2022-05-03 13:38] VITALS: BP 108/76; PULSE 81; RESP 16; TEMP 98
== END 2022-05-03 13:38 | disposition home or self-care (01) ==
LOC: EC 11:28
DX: S92.002A Unspecified fracture of left calcaneus, initial encounter for closed fracture (principal); F90.9 Attention-deficit hyperactivity disorder, unspecified type; F12.90 Cannabis use, unspecified, uncomplicated; W01.0XXA Fall on same level from slipping, tripping and stumbling without subsequent striking against object, initial encounter
CPT/HCPCS: 73610; 73630; 99283; 96372; 29515; J1885

== ENCOUNTER 2022-07-10 10:30 | Inpatient (IN) | payer MEDICAID, OTHER ==
--- NOTE | 2022-07-10 10:54 | ED ---
General Adult HPI - General Chief complaint: Psychiatric Symptoms Stated complaint: MEDICATION RADHIKACALVINDAYANNA SENT Time Seen by Provider: 07/10/22 10:48 Source: patient, RN notes reviewed Mode of arrival: ambulatory Limitations: no limitations - History of Present Illness Initial comments: Patient is a pleasant 32-year-old female presenting to the emergency department with concerns with depression. Patient has had increased stressors recently. Patient denies any recent suicidal ideation. No homicidal thoughts. No hallucinations. No new physical complaints. No alcohol or street drug use other than occasional marijuana which she feels makes her symptoms worse. - Related Data Home Medications Medication Instructions Recorded Confirmed lamoTRIgine [LaMICtal] 200 mg PO DAILY 07/10/22 07/10/22 Allergies Allergy/AdvReac Type Severity Reaction Status Date / Time No Known Allergies Allergy Verified 07/10/22 13:15 Review of Systems ROS Statement: Those systems with pertinent positive or pertinent negative responses have been documented in the HPI. ROS Other: All systems not noted in ROS Statement are negative. Constitutional: Denies: fever Eyes: Denies: eye pain ENT: Denies: ear pain Respiratory: Denies: cough Cardiovascular: Denies: chest pain Endocrine: Denies: fatigue Gastrointestinal: Denies: abdominal pain Genitourinary: Denies: urgency Psychiatric: Reports: as per HPI Past Medical History Past Medical History: No Reported History Additional Past Medical History / Comment(s): OBstetric history: First was a spontaneous second was a vaginal delivery at 40 weeks and 3 days, third vaginal delivery at 37 weeks and 4 days, this is her fourth . She's had care with Dr. Vu since 12 weeks gestation. Blood type is A+, and denies negative, rubella immune, hepatitis B surface antigen negative, RPR nonreactive, HIV nonreactive, GBS positive. History of Any Multi-Drug Resistant Organisms: None Reported Past Surgical History: Tubal Ligation Additional Past Surgical History / Comment(s): lymph node removal, nose surgery Past Anesthesia/Blood Transfusion Reactions: No Reported Reaction Past Psychological History: ADD/ADHD, Depression Smoking Status: Never smoker Past Alcohol Use History: Rare Past Drug Use History: Marijuana - Past Family History Father Family Medical History: No Reported History General Exam Limitations: no limitations General appearance: alert Head exam: Present: normocephalic Eye exam: Present: normal appearance Neck exam: Present: normal inspection Respiratory exam: Present: normal lung sounds bilaterally Cardiovascular Exam: Present: regular rate, normal rhythm GI/Abdominal exam: Present: soft. Absent: tenderness Extremities exam: Present: normal inspection Neurological exam: Present: alert Psychiatric exam: Present: depressed, anxious Skin exam: Present: normal color Course Vital Signs 07/10/22 07/10/22 10:42 11:11 Temperature 98.5 F Pulse Rate 72 66 Respiratory 20 18 Rate Blood Pressure 121/75 119/67 O2 Sat by Pulse 99 98 Oximetry Medical Decision Making - Medical Decision Making Was pt. sent in by a medical professional or institution (, [facility]ENN[facility]ER, DIRECTOR PHARMACY SERVICES, urgent care, hospital, or long term...) When possible be specific @ -No Did you speak to anyone other than the patient for history (EMS, parent, family, police, friend...)? What history was obtained from this source @ -No Did you review nursing and triage notes (agree or disagree)? Why? @ -I reviewed and agree with nursing and triage notes Were old charts reviewed (outside hosp., previous admission, EMS record, old EKG, old radiological studies, urgent care reports/EKG's, long term records)? Report findings @ -No old charts were reviewed Differential Diagnosis (chest pain, altered mental status, abdominal pain women, abdominal pain men, vaginal bleeding, weakness, fever, dyspnea, syncope, headache, dizziness, GI bleed, back pain, seizure, CVA, palpatations, mental health)? @ -not applicable EKG interpreted by me (3pts min.). @ -As above X-rays interpreted by me (1pt min.). @ -None done CT interpreted by me (1pt min.). @ -None done U/S interpreted by me (1pt. min.). @ -None done What testing was considered but not performed or refused? (CT, X-rays, U/S, labs)? Why? @ -None What meds were considered but not given or refused? Why? @ -None Did you discuss the management of the patient with other professionals (professionals i.e. JENNIFER Solomon, DIRECTOR PHARMAC[employer] SERVICES, lab, RT, psych nurse, director social service, reference library assistant, teacher, command center officer, ed case manager)? Give summary @ -Case was discussed with psychiatric nurse with plans for admission. Patient did sign herself in. Was smoking cessation discussed for >3mins.? @ -No Was critical care preformed (if so, how long)? @ -No Were there social determinants of health that impacted care today? How? (Homelessness, low income, unemployed, alcoholism, drug addiction, transportation, low edu. Level, literacy, decrease access to med. care, [facility], rehab)? @ -No Was there de-escalation of care discussed even if they declined (Discuss DNR or withdrawal of care, Hospice)? DNR status @ -No What co-morbidities impacted this encounter? (DM, HTN, Smoking, COPD, CAD, Cancer, CVA, ARF, Chemo, Hep., AIDS, mental health diagnosis, sleep apnea, morbid obesity)? @ -None Was patient admitted / discharged? Hospital course, mention meds given and route, prescriptions, significant lab abnormalities, going to OR and other pertinent info. @ -Patient will be admitted for psychiatric care. Undiagnosed new problem with uncertain prognosis? @ -No Drug Therapy requiring intensive monitoring for toxicity (Heparin, Nitro, Insulin, Cardizem)? @ -No Were any procedures done? @ -No Diagnosis/symptom? @ -Depression Acute, or Chronic, or Acute on Chronic? @ -Acute Uncomplicated (without systemic symptoms) or Complicated (systemic symptoms)? @ -default Side effects of treatment? @ -No Exacerbation, Progression, or Severe Exacerbation? @ -No Poses a threat to life or bodily function? How? (Chest pain, [place], [place], pneumonia, PE, COPD, DKA, ARF, appy, cholecystitis, CVA, Diverticulitis, Homicidal, Suicidal, threat to staff... and all critical care pts) @ -No - Lab Data Lab Results 07/10/22 07/10/22 Range/Units 12:09 12:54 Urine Opiates Screen Not Detected (NotDetected) Ur Oxycodone Screen Not Detected (NotDetected) Urine Methadone Screen Not Detected (NotDetected) Ur Propoxyphene Screen Not Detected (NotDetected) Ur Barbiturates Screen Not Detected (NotDetected) U Tricyclic Antidepress Not Detected (NotDetected) Ur Phencyclidine Scrn Not Detected (NotDetected) Ur Amphetamines Screen Not Detected (NotDetected) U Methamphetamines Scrn Not Detected (NotDetected) U Benzodiazepines Scrn Not Detected (NotDetected) Urine Cocaine Screen Not Detected (NotDetected) U Marijuana (THC) Screen Detected H (NotDetected) Coronavirus (PCR) Not Detected (Not Detectd) Disposition Clinical Impression: Depression Disposition: TRANSFER TO PSYCH HOSP/UNIT Is patient prescribed a controlled substance at d/c from ED?: No Referrals: Placido Valladares MD [Primary Care Provider] - 1-2 days Time of Disposition: 14:55
[2022-07-10 11:12] VITALS: RESP 18
[2022-07-10 13:41] LABS: Amphetamine Screen,Urine Not Detected (NotDetected); Barbiturate Screen,Urine Not Detected (NotDetected); Benzodiazepines Screen,Urine Not Detected (NotDetected); Cocaine Screen,Urine Not Detected (NotDetected); Methadone Screen, Urine Not Detected (NotDetected); Opiate Screen,Urine Not Detected (NotDetected); Oxycodone Screen, Urine Not Detected (NotDetected); Phencyclidine Screen,Urine Not Detected (NotDetected); Tricyclic Antidepressant,Urine Not Detected (NotDetected); Urn Cannabinoid Scrn Detected (NotDetected)
[2022-07-10] MEDS ORDERED: MAGNESIUM HYDROXIDE 2,400 MG/10 ML CUP PO PRN (16:16)
[2022-07-10] MEDS ORDERED: LORazepam 1 MG TAB PO PRN (16:16)
[2022-07-10] MEDS ORDERED: MAG HYDROX/AL HYDROX/SIMETH 30 ML CUP PO PRN (16:16)
[2022-07-10] MEDS ORDERED: ACETAMINOPHEN TAB 325 MG TAB PO PRN (16:16)
[2022-07-10] MEDS ORDERED: haloperidoL 5 MG TAB PO PRN (16:16)
[2022-07-10] MEDS ORDERED: LORazepam 2 MG/ML INJ IM PRN (16:20)
[2022-07-10] MEDS ORDERED: HALOPERIDOL LACTATE 5 MG/ML 1 ML VIAL IM PRN (16:21)
[2022-07-10 17:12] VITALS: BP 132/82; PULSE 68; TEMP 97.1
[2022-07-11 08:32] LABS: Basophils % (A) 0 %; Eosinophils # (A) 0.2 k/uL (0-0.7); Eosinophils % (A) 2 %; HCT 44.3 % (34.0-46.0); HGB 14.7 gm/dL (11.4-16.0); Lymphocytes # (A) 1.7 k/uL (1.0-4.8); Lymphocytes % (A) 25 %; MCH 29.6 pg (25.0-35.0); MCHC 33.1 g/dL (31.0-37.0); MCV 89.3 fL (80.0-100.0); Mean Platelet Volume 7.7; Monocytes # (A) 0.3 k/uL (0-1.0); Monocytes % (A) 4 %; Neutrophils # (A) 4.5 k/uL (1.3-7.7); Neutrophils % (A) 66 %; Platelet Count 230 k/uL (150-450); RBC 4.96 m/uL (3.80-5.40); RDW 12.8 % (11.5-15.5); WBC 6.8 k/uL (3.8-10.6)
[2022-07-11 08:51] LABS: ALT 15 U/L (4-34); AST 22 U/L (14-36); African American GFR (CKD) 86 (>60 ml/min/1.73 sqM); Albumin 4.2 g/dL (3.5-5.0); Alkaline Phosphatase 59 U/L (38-126); Anion Gap 7 mmol/L; Blood Urea Nitrogen 14 mg/dL (7-17); Calcium 9.6 mg/dL (8.4-10.2); Carbon Dioxide 29 mmol/L (22-30); Chloride 103 mmol/L (98-107); Glucose 81 mg/dL (74-99); Non-African American GFR(CKD) 74 (>60 ml/min/1.73 sqM); Potassium 4.8 mmol/L (3.5-5.1); Sodium 139 mmol/L (137-145); Total Bilirubin 0.8 mg/dL (0.2-1.3); Total Protein 6.8 g/dL (6.3-8.2)
[2022-07-11 14:24] LABS: Chol/HDL Ratio 2.73 Ratio; LDL Cholesterol,Calculated 69.2 mg/dL (0.0-131.0); VLDL Calculation 18.82 mg/dL (5.00-40.00)
[2022-07-11] MEDS ORDERED: hydrOXYzine pamoate 25 MG CAP PO PRN (20:39)
[2022-07-11] MEDS: lamoTRIgine 100 MG TAB PO SCH ×2 (20:42→20:59)
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
[2022-07-11] MEDS: MIRTAZAPINE 15 MG TAB PO SCH (20:59)
[2022-07-12] MEDS: lamoTRIgine 100 MG TAB PO SCH (08:08)
[2022-07-12] MEDS ORDERED: ARIPiprazole 5 MG TAB PO SCH (15:00)
--- NOTE | 2022-07-12 19:52 | P.PN ---
Progress Note - Text Progress Note Date: 07/12/22 Interval history: Patient was seen resting in her bed in the middle of the day with lights off and curtains closed. She is agreeable to speak with bid writer however she easily derails in assessment, is verbose, argumentative and accusatory. Mood is irritable, affect somewhat labile. Insight is poor. She appears to be an unreliable historian due to conflicting history and tends to be argumentative. At this time patient denies any suicidal or homicidal ideation, intent or plan. Denies any auditory or visual hallucinations. Patient denies any side effects from the medications and has been compliant with meds. Nurse reports patient told him she was yelling/arguing with people at work, had to take time off work and cannot return to work without a return to work letter from psychiatrist. She is hoping for discharge and wants to return home to her kids. Mental status exam: General Appearance: Patient appears to be stated age, well nourished female, dressed in casual attire, long hair, adequate hygiene and grooming. Behavior: Verbose, argumentative and accusatory, demanding Speech: Patient's speech is fluent, verbose, rapid but not pressured. Mood/Affect: Mood is irritable, affect is congruent/labile. Suicidality/Homicidality: Patient denies having any suicidal or homicidal ideation intent or plan. Perceptions: Patient denies any auditory or visual hallucinations. Though content/process: Demanding, accusatory, argumentative/derails, tangential, circumstantial Memory and concentration: AOX3, grossly intact for the purposes of this session Judgment and insight: poor Assessment/Plan: Continue with current diagnosis. Patient continues to meet criteria for inpatient psychiatric admission for symptom stabilization and safety. Start Abilify 2 mg daily for mood, with plan to increase to 5 mg daily starting tomorrow morning. Monitor for medication compliance and for any psychotropic medication side effects. Will continue to monitor ongoing response to treatment. Encouraged participation in milieu.
[2022-07-12] MEDS: MIRTAZAPINE 15 MG TAB PO SCH (19:59)
--- NOTE | 2022-07-13 01:52 | P.MDCNMH ---
History of Present Illness H&P Date: 07/11/22 Past Medical History Past Medical History: No Reported History Additional Past Medical History / Comment(s): OBstetric history: First was a spontaneous second was a vaginal delivery at 40 weeks and 3 days, third vaginal delivery at 37 weeks and 4 days, this is her fourth . She's had care with Dr. Vu since 12 weeks gestation. Blood type is A+, and denies negative, rubella immune, hepatitis B surface antigen negative, RPR nonreactive, HIV nonreactive, GBS positive. History of Any Multi-Drug Resistant Organisms: None Reported Past Surgical History: Tubal Ligation Additional Past Surgical History / Comment(s): lymph node removal, nose surgery Past Anesthesia/Blood Transfusion Reactions: No Reported Reaction Past Psychological History: ADD/ADHD, Depression Smoking Status: Never smoker Past Alcohol Use History: Rare Past Drug Use History: None Reported, Marijuana - Past Family History Father Family Medical History: No Reported History Medications and Allergies Home Medications Medication Instructions Recorded Confirmed Type lamoTRIgine [LaMICtal] 200 mg PO DAILY 07/10/22 07/10/22 History Allergies Allergy/AdvReac Type Severity Reaction Status Date / Time No Known Allergies Allergy Verified 07/10/22 13:15 Physical Exam Vitals: Vital Signs Temp Pulse Resp BP 07/10/22 16:55 97.1 F L 68 18 132/82 Results CBC & Chem 7: 07/11/22 07:50 07/11/22 07:50
[2022-07-13] MEDS: lamoTRIgine 100 MG TAB PO SCH (07:54)
[2022-07-13] MEDS ORDERED: ARIPiprazole 5 MG TAB PO SCH (09:00)
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
== END 2022-07-13 12:50 | disposition home or self-care (01) | DRG 753 ==
LOC: EC 10:30 → 3MHU 15:58
PROVIDERS: ADMIT Psychiatry & Neurology Psychiatry; ATTEND Psychiatry & Neurology Psychiatry
DX: F31.81 Bipolar II disorder (principal); F41.1 Generalized anxiety disorder; R45.851 Suicidal ideations; Z20.822 Contact with and (suspected) exposure to COVID-19; F51.5 Nightmare disorder; F90.9 Attention-deficit hyperactivity disorder, unspecified type; F60.3 Borderline personality disorder; G47.00 Insomnia, unspecified; Z79.899 Other long term (current) drug therapy; Z98.51 Tubal ligation status
CPT/HCPCS: 80053; 80061; 80306; 82075; 83036; 84443; 85025; 87635; 99285

== ENCOUNTER 2023-03-23 01:58 | Inpatient (IN) | payer OTHER ==
[2023-03-23] MEDS: ETOMIDATE 2 MG/ML 10 ML VIAL IVP STA (02:13)
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
[2023-03-23 02:32] LABS: Basophils # (A) 0.1 k/uL (0-0.2); Basophils % (A) 1 %; Eosinophils # (A) 0.3 k/uL (0-0.7); Eosinophils % (A) 2 %; HCT 41.4 % (34.0-46.0); HGB 14.1 gm/dL (11.4-16.0); Lymphocytes # (A) 3.8 k/uL (1.0-4.8); Lymphocytes % (A) 29 %; MCH 30.9 pg (25.0-35.0); MCHC 34.2 g/dL (31.0-37.0); MCV 90.5 fL (80.0-100.0); Mean Platelet Volume 7.5; Monocytes # (A) 0.4 k/uL (0-1.0); Monocytes % (A) 3 %; Neutrophils # (A) 8.3 k/uL (1.3-7.7); Neutrophils % (A) 63 %; Platelet Count 280 k/uL (150-450); RBC 4.57 m/uL (3.80-5.40); RDW 12.6 % (11.5-15.5); WBC 13.2 k/uL (3.8-10.6)
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
[2023-03-23 02:45] LABS: ALT 40 U/L (4-34); African American GFR (CKD) >90 (>60 ml/min/1.73 sqM); Albumin 4.5 g/dL (3.5-5.0); Anion Gap 12 mmol/L; Blood Urea Nitrogen 9 mg/dL (7-17); Calcium 9.1 mg/dL (8.4-10.2); Carbon Dioxide 20 mmol/L (22-30); Chloride 107 mmol/L (98-107); Glucose 116 mg/dL (74-99); Non-African American GFR(CKD) 79 (>60 ml/min/1.73 sqM); Sodium 139 mmol/L (137-145); Total Bilirubin 0.4 mg/dL (0.2-1.3); Total Protein 7.1 g/dL (6.3-8.2)
[2023-03-23] MEDS: MORPHINE SULFATE 4 MG/ML SYRINGE IV STA (02:45)
[2023-03-23] MEDS: PROPOFOL 10 MG/ML 20 ML VIAL IV ONE ×2 (02:48→03:09)
[2023-03-23 02:53] LABS: Alcohol 159 mg/dL
[2023-03-23 02:54] LABS: AST 58 U/L (14-36); Alkaline Phosphatase 54 U/L (38-126); Potassium 3.8 mmol/L (3.5-5.1)
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
[2023-03-23 02:55] LABS: Prothrombin Time 10.7 sec (10.0-12.5)
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
[2023-03-23 03:02] LABS: Partial Thromboplastin Time 19.9 sec (22.0-30.0)
--- NOTE | 2023-03-23 03:16 | CT ---
EXAM: CT Chest With Intravenous Contrast CLINICAL HISTORY: ITS.REASON CT Reason: trauma TECHNIQUE: Axial computed tomography images of the chest with intravenous contrast. CTDI is 16.6 mGy and DLP is 452.1 mGy-cm. This CT exam was performed using one or more of the following dose reduction techniques: automated exposure control, adjustment of the mA and/or kV according to patient size, and/or use of iterative reconstruction technique. COMPARISON: No relevant prior studies available. FINDINGS: Lungs: Unremarkable. No mass. No consolidation. Pleural space: Unremarkable. No pneumothorax. No significant effusion. Heart: Unremarkable. No cardiomegaly. No significant pericardial effusion. No significant coronary artery calcifications. Bones/joints: Evaluation of the ribs is limited secondary to patient respiratory motion. No acute fracture. No dislocation. Soft tissues: Unremarkable. Vasculature: Unremarkable. No thoracic aortic aneurysm. Lymph nodes: Unremarkable. No enlarged lymph nodes. IMPRESSION: No acute findings in the chest. EXAM: CT Abdomen and Pelvis With Intravenous Contrast CLINICAL HISTORY: ITS.REASON CT Reason: trauma TECHNIQUE: Axial computed tomography images of the abdomen and pelvis with intravenous contrast. CTDI is 15.8 mGy and DLP is 1138 mGy-cm. This CT exam was performed using one or more of the following dose reduction techniques: automated exposure control, adjustment of the mA and/or kV according to patient size, and/or use of iterative reconstruction technique. COMPARISON: No relevant prior studies available. FINDINGS: Lung bases: Unremarkable. No mass. No consolidation. ABDOMEN: Liver: Unremarkable. No mass. Gallbladder and bile ducts: Unremarkable. No calcified stones. No ductal dilation. Pancreas: Unremarkable. No mass. No ductal dilation. Spleen: Unremarkable. No splenomegaly. Adrenals: Unremarkable. No mass. Kidneys and ureters: Unremarkable. No solid mass. No hydronephrosis. Stomach and bowel: Unremarkable. No obstruction. No mucosal thickening. PELVIS: Appendix: No findings to suggest acute appendicitis. Bladder: Unremarkable. No mass. Reproductive: Unremarkable as visualized. ABDOMEN and PELVIS: Intraperitoneal space: Unremarkable. No free air. No significant fluid collection. Bones/joints: Posterior subluxation of the right hip. No fractures. Soft tissues: Unremarkable. Vasculature: Unremarkable. No abdominal aortic aneurysm. Lymph nodes: Unremarkable. No enlarged lymph nodes. IMPRESSION: Right posterior hip dislocation.
--- NOTE | 2023-03-23 03:38 | XR ---
EXAM: XR Right Hip With Pelvis When Performed, 1 View CLINICAL HISTORY: ITS.REASON XR Reason: Trauma TECHNIQUE: Frontal view of the right hip with pelvis when performed. COMPARISON: References made to prior CT performed earlier on the same date.. FINDINGS: Bones/joints: Unremarkable. No acute fracture. No dislocation. Soft tissues: Unremarkable. IMPRESSION: Limited exam No acute osseous pathology. Interval reduction of right hip dislocation.
[2023-03-23] MEDS ORDERED: NALOXONE 0.4 MG/ML 1 ML VIAL IV PRN (03:59)
--- NOTE | 2023-03-23 04:42 | CT ---
EXAM: CT Right Lower Extremity Without Intravenous Contrast, Hip CLINICAL HISTORY: ITS.REASON CT Reason: dislocation TECHNIQUE: Axial computed tomography images of the right hip without intravenous contrast. CTDI is 22.4 mGy and DLP is 727.9 mGy-cm. This CT exam was performed using one or more of the following dose reduction techniques: automated exposure control, adjustment of the mA and/or kV according to patient size, and/or use of iterative reconstruction technique. COMPARISON: No relevant prior studies available. FINDINGS: Bones/joints: Unremarkable. No acute fracture. No dislocation. Soft tissues: Unremarkable. IMPRESSION: Normal right hip CT.
[2023-03-23] MEDS ORDERED: MAG HYDROX/AL HYDROX/SIMETH 30 ML CUP PO PRN (04:46)
[2023-03-23] MEDS: SODIUM CHLORIDE 0.9% 1,000 ML IV SCH (05:02)
[2023-03-23] MEDS: MORPHINE SULFATE 4 MG/ML SYRINGE IV PRN (06:26)
[2023-03-23 08:00] LABS: Glucose,Whole Blood 103 mg/dL (70-110)
[2023-03-23] MEDS: FAMOTIDINE 20 MG TAB PO SCH (10:21)
[2023-03-23 10:33] LABS: Appearance,Urine Clear (Clear); Bilirubin,Urine Negative (Negative); Blood,Urine Negative (Negative); Color,Urine Colorless; Glucose,Urine (UA) Negative (Negative); Ketones,Urine Negative (Negative); Leukocyte Esterase,Urine Negative (Negative); Nitrite,Urine Negative (Negative); Protein,Urine Negative (Negative); Specific Gravity,Urine 1.024 (1.001-1.035); Urobilinogen,Urine <2.0 mg/dL (<2.0)
[2023-03-23 10:46] LABS: Cocaine Screen,Urine Detected (NotDetected); Phencyclidine Screen,Urine Not Detected (NotDetected); Urn Cannabinoid Scrn Detected (NotDetected)
[2023-03-23 10:47] LABS: Amphetamine Screen,Urine Not Detected (NotDetected); Barbiturate Screen,Urine Not Detected (NotDetected); Benzodiazepines Screen,Urine Not Detected (NotDetected); Methadone Screen, Urine Not Detected (NotDetected); Opiate Screen,Urine Detected (NotDetected); Oxycodone Screen, Urine Not Detected (NotDetected); Tricyclic Antidepressant,Urine Not Detected (NotDetected)
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
[2023-03-23] MEDS: ONDANSETRON 4 MG/2 ML VIAL IVP PRN (14:03)
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
[2023-03-23] MEDS: KETOROLAC 15 MG/ML 1 ML VIAL IVP SCH (15:33)
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
[2023-03-23] MEDS: HYDROcodone/APAP 5-325MG 1 EACH TAB PO PRN (20:45)
[2023-03-24] MEDS: ARIPiprazole 5 MG TAB PO SCH (08:01)
[2023-03-24] MEDS: lamoTRIgine 100 MG TAB PO SCH (08:01)
[2023-03-24] MEDS: VILOXAZINE HCL 200 MG PO SCH (08:01)
[2023-03-24 08:51] LABS: Basophils % (A) 0 %; Eosinophils # (A) 0.2 k/uL (0-0.7); Eosinophils % (A) 2 %; HCT 40.9 % (34.0-46.0); HGB 13.7 gm/dL (11.4-16.0); Lymphocytes # (A) 1.7 k/uL (1.0-4.8); Lymphocytes % (A) 19 %; MCH 30.7 pg (25.0-35.0); MCHC 33.4 g/dL (31.0-37.0); MCV 91.9 fL (80.0-100.0); Mean Platelet Volume 7.6; Monocytes # (A) 0.5 k/uL (0-1.0); Monocytes % (A) 6 %; Neutrophils # (A) 6.2 k/uL (1.3-7.7); Neutrophils % (A) 71 %; Platelet Count 213 k/uL (150-450); RBC 4.45 m/uL (3.80-5.40); RDW 12.7 % (11.5-15.5); WBC 8.8 k/uL (3.8-10.6)
[2023-03-24] MEDS ORDERED: NON FORMULARY DRUG (Lamotrigine [Lamictal] 200 MG Tablet) PO SCH (09:00)
[2023-03-24 09:05] LABS: ALT 39 U/L (4-34); AST 61 U/L (14-36); African American GFR (CKD) >90 (>60 ml/min/1.73 sqM); Albumin 3.5 g/dL (3.5-5.0); Albumin/Globulin Ratio 1.4; Alkaline Phosphatase 68 U/L (38-126); Anion Gap 6 mmol/L; Blood Urea Nitrogen 12 mg/dL (7-17); Calcium 8.9 mg/dL (8.4-10.2); Carbon Dioxide 24 mmol/L (22-30); Chloride 107 mmol/L (98-107); Globulin 2.5 g/dL; Glucose 90 mg/dL (74-99); Non-African American GFR(CKD) >90 (>60 ml/min/1.73 sqM); Potassium 4.1 mmol/L (3.5-5.1); Sodium 137 mmol/L (137-145); Total Bilirubin 0.9 mg/dL (0.2-1.3)
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
[2023-03-24] MEDS ORDERED: diazePAM 5 MG TAB PO PRN (09:10)
[2023-03-24 12:24] LABS: Glucose,Whole Blood 91 mg/dL (70-110)
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
[2023-03-24] MEDS: HYDROcodone/APAP 5-325MG 1 EACH TAB PO PRN (16:34)
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
[2023-03-25] MEDS: ACETAMINOPHEN TAB 325 MG TAB PO PRN (08:37)
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
[2023-03-26] MEDS: ARIPiprazole 5 MG TAB PO SCH (06:43)
[2023-03-26] MEDS: lamoTRIgine 100 MG TAB PO SCH (06:43)
[2023-03-26 08:29] VITALS: BP 117/75; PULSE 78; RESP 16; TEMP 98.5
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
== END 2023-03-26 13:00 | disposition home or self-care (01) | DRG 537 ==
LOC: EC 01:58 → 4SSUR 04:47
PROVIDERS: ADMIT Orthopaedic Surgery Hand Surgery; ATTEND Orthopaedic Surgery Hand Surgery
PROC: 0QS6XZZ Reposition Right Upper Femur, External Approach (ICD-10-PCS; principal; 2023-03-23)
DX: S73.011A Posterior subluxation of right hip, initial encounter (principal); F31.81 Bipolar II disorder; F10.129 Alcohol abuse with intoxication, unspecified; F19.90 Other psychoactive substance use, unspecified, uncomplicated; M25.531 Pain in right wrist; S02.2XXA Fracture of nasal bones, initial encounter for closed fracture; Y90.6 Blood alcohol level of 120-199 mg/100 ml; V47.0XXA Car driver injured in collision with fixed or stationary object in nontraffic accident, initial encounter; W22.11XA Striking against or struck by driver side automobile airbag, initial encounter; Y92.410 Unspecified street and highway as the place of occurrence of the external cause; Z79.899 Other long term (current) drug therapy
CPT/HCPCS: 27250; 36415; 70450; 70486; 71045; 71260; 72125; 72170; 73501; 74177; 80053; 80306; 80320; 81003; 81025; 83605; 84484; 85025; 85610; 85730; 86850; 86900; 86901; 93005; 94760; 96361; 96374; 99152; 99291

== ENCOUNTER 2023-09-09 11:27 | Emergency (ER) | payer OTHER ==
[2023-09-09] MEDS: SODIUM CHLORIDE 0.9% 2,000 ML IV STA (12:31)
[2023-09-09 12:40] LABS: Basophils % (A) 0 %; Eosinophils # (A) 0.2 k/uL (0-0.7); Eosinophils % (A) 1 %; HCT 44.3 % (34.0-46.0); HGB 14.8 gm/dL (11.4-16.0); Lymphocytes # (A) 1.3 k/uL (1.0-4.8); Lymphocytes % (A) 11 %; MCHC 33.4 g/dL (31.0-37.0); MCV 86.9 fL (80.0-100.0); Mean Platelet Volume 7.5; Monocytes # (A) 0.5 k/uL (0-1.0); Monocytes % (A) 4 %; Neutrophils # (A) 10.2 k/uL (1.3-7.7); Neutrophils % (A) 83 %; Platelet Count 268 k/uL (150-450); RBC 5.09 m/uL (3.80-5.40); RDW 12.6 % (11.5-15.5); WBC 12.3 k/uL (3.8-10.6)
[2023-09-09 13:00] LABS: ALT 35 U/L (4-34); AST 35 U/L (14-36); African American GFR (CKD) >90 (>60 ml/min/1.73 sqM); Albumin 4.5 g/dL (3.5-5.0); Alkaline Phosphatase 86 U/L (38-126); Amylase 45 U/L (30-110); Anion Gap 9 mmol/L; Blood Urea Nitrogen 18 mg/dL (7-17); Calcium 9.5 mg/dL (8.4-10.2); Carbon Dioxide 25 mmol/L (22-30); Chloride 103 mmol/L (98-107); Glucose 84 mg/dL (74-99); Lipase 58 U/L (23-300); Non-African American GFR(CKD) >90 (>60 ml/min/1.73 sqM); Potassium 4.1 mmol/L (3.5-5.1); Sodium 137 mmol/L (137-145); Total Bilirubin 0.6 mg/dL (0.2-1.3); Total Protein 7.5 g/dL (6.3-8.2)
[2023-09-09 13:05] LABS: Appearance,Urine Clear (Clear); Bilirubin,Urine Negative (Negative); Blood,Urine Negative (Negative); Color,Urine Light Yellow; Glucose,Urine (UA) Negative (Negative); Ketones,Urine Negative (Negative); Leukocyte Esterase,Urine Negative (Negative); Nitrite,Urine Negative (Negative); PH, Urine 5.5 (5.0-8.0); Protein,Urine Negative (Negative); Specific Gravity,Urine 1.021 (1.001-1.035); Urobilinogen,Urine <2.0 mg/dL (<2.0)
--- NOTE | 2023-09-09 13:12 | US ---
EXAMINATION TYPE: US gallbladder DATE OF EXAM: 09/09/2023 COMPARISON: Abdominal ultrasound 11/26/2016, CT chest abdomen pelvis 03/23/2023 CLINICAL INDICATION: Female, 33 years old with history of pain; Pain. TECHNIQUE: Multiple sonographic images of the right upper quadrant are obtained. FINDINGS: EXAM MEASUREMENTS: Liver Length: 16.8 cm Gallbladder Wall: 0.18 cm CBD: 0.31 cm Right Kidney: 11.9 x 5.7 x 4.5 cm SPINDLE SETTER NOTES: Exam is limited due to gas. Pancreas: Obscured Liver: No abnormalities seen. Gallbladder: Appears anechoic. Evidence for sonographic Ackerman's sign: No CBD: Portions seen appear wnl Right Kidney: Renal pelvis appears prominent. * Hyperechoic focus seen lower pole: 0.4 x 0.3 x 0.2 cm. The pancreas is obscured by overlying bowel gas. Liver is unremarkable. Gallbladder is anechoic witho ut wall thickening, stones, or stranding fluid. Negative sonographic Ackerman's sign. Common bile duct is within normal limits. Nonobstructive right renal calculus suggested without shadowing. No hydronep hrosis. Prominent extra renal pelvis. IMPRESSION: 1. No ultrasound evidence for an acute process. Unremarkable gallbladder. 2. Punctate nonobstructive right renal calculus suggested.
[2023-09-09] MEDS: METOCLOPRAMIDE 5 MG/ML 2 ML VIAL IVP STA (13:52)
[2023-09-09] MEDS: diphenhydrAMINE 50 MG/ML 1 ML VIAL IVP STA (13:52)
--- NOTE | 2023-09-09 14:29 | ED ---
General Adult HPI - General Chief complaint: Abdominal Pain Stated complaint: Abd pain Time Seen by Provider: 09/09/23 11:44 Source: patient, RN notes reviewed Mode of arrival: ambulatory Limitations: no limitations - History of Present Illness Initial comments: 33-year-old female presents to the emergency department for evaluation of epigastric abdominal pain. Patient states that this started around 7:30 AM this morning. She does note some radiation of the pain to her back. Patient admits to 1 episode of vomiting this morning. She did not take anything for the pain. She does note that she recently was started on Wegovy shot and has had 2 doses thus far. She had a normal bowel movement this morning. Denies fever, chills. - Related Data Home Medications Medication Instructions Recorded Confirmed Viloxazine HCl [Qelbree] 400 mg PO DAILY 03/23/23 03/23/23 Previous Rx's Medication Instructions Recorded ARIPiprazole [Abilify] 5 mg PO DAILY 30 Days #30 tab 07/13/22 lamoTRIgine [LaMICtal] 200 mg PO DAILY 30 Days #30 tab 07/13/22 Docusate [Colace] 100 mg PO BID #60 capsule 03/25/23 HYDROcodone/APAP 5-325MG [[place] 5] 1 - 2 each PO Q4-6H PRN #28 tab 03/25/23 Metoclopramide [Reglan] 10 mg PO TID PRN #15 tab 09/09/23 Allergies Allergy/AdvReac Type Severity Reaction Status Date / Time No Known Allergies Allergy Verified 09/09/23 11:30 Review of Systems ROS Statement: Those systems with pertinent positive or pertinent negative responses have been documented in the HPI. ROS Other: All systems not noted in ROS Statement are negative. Past Medical History Past Medical History: No Reported History Additional Past Medical History / Comment(s): OBstetric history: First was a spontaneous second was a vaginal delivery at 40 weeks and 3 days, third vaginal delivery at 37 weeks and 4 days, this is her fourth . She's had care with Dr. Vu since 12 weeks gestation. Blood type is A+, and denies negative, rubella immune, hepatitis B surface antigen negative, RPR nonreactive, HIV nonreactive, GBS positive. History of Any Multi-Drug Resistant Organisms: None Reported Past Surgical History: Tubal Ligation Additional Past Surgical History / Comment(s): lymph node removal, nose surgery Past Anesthesia/Blood Transfusion Reactions: No Reported Reaction Past Psychological History: ADD/ADHD, Depression Smoking Status: Never smoker Past Alcohol Use History: Rare Past Drug Use History: None Reported, Marijuana - Past Family History Father Family Medical History: No Reported History General Exam Limitations: no limitations General appearance: alert, in no apparent distress Head exam: Present: atraumatic, normocephalic, normal inspection Eye exam: Present: normal appearance, PERRL, EOMI. Absent: scleral icterus, conjunctival injection, periorbital swelling ENT exam: Present: normal exam, mucous membranes moist Neck exam: Present: normal inspection. Absent: tenderness, meningismus, lymphadenopathy Respiratory exam: Present: normal lung sounds bilaterally. Absent: respiratory distress, wheezes, rales, rhonchi, stridor Cardiovascular Exam: Present: regular rate, normal rhythm, normal heart sounds. Absent: systolic murmur, diastolic murmur, rubs, gallop, clicks GI/Abdominal exam: Present: soft, tenderness (Epigastric), normal bowel sounds. Absent: distended, guarding, rebound, rigid Extremities exam: Present: normal inspection, full ROM, normal capillary refill. Absent: tenderness, pedal edema, joint swelling, calf tenderness Back exam: Present: normal inspection Neurological exam: Present: alert, oriented X3 Psychiatric exam: Present: normal affect, normal mood Skin exam: Present: warm, dry, intact, normal color. Absent: rash Course Vital Signs 09/09/23 09/09/23 09/09/23 11:27 12:35 14:38 Temperature 98.0 F 97.9 F 98 F Pulse Rate 72 88 97 Respiratory 20 17 18 Rate Blood Pressure 139/85 117/82 114/62 O2 Sat by Pulse 99 100 100 Oximetry Medical Decision Making - Medical Decision Making Was pt. sent in by a medical professional or institution (, PA, INSTRUMENT LENS INSPECTOR, urgent care, hospital, or snf...) When possible be specific @ -No Did you speak to anyone other than the patient for history (EMS, parent, family, police, friend...)? What history was obtained from this source @ -No Did you review nursing and triage notes (agree or disagree)? Why? @ -I reviewed and agree with nursing and triage notes Were old charts reviewed (outside hosp., previous admission, EMS record, old EKG, old radiological studies, urgent care reports/EKG's, snf records)? Report findings @ -No old charts were reviewed Differential Diagnosis (chest pain, altered mental status, abdominal pain women, abdominal pain men, vaginal bleeding, weakness, fever, dyspnea, syncope, headache, dizziness, GI bleed, back pain, seizure, CVA, palpatations, mental health, musculoskeletal)? @ -Differential Abdominal Pain Women: Appendicitis, Cholecystitis, diverticulosis, ischemic bowel, pancreatitis, hepatitis, UTI, gastroenteritis, AAA, incarcerated hernia, bowel obstruction, constipation, inflammatory bowel, hepatitis, peptic ulcer disease, splenic infarction, perforated viscus, vulvitis, ovarian torsion, PID, kidney stone, placenta abruption, this is not meant to be an all-inclusive list EKG interpreted by me (3pts min.). @ -None X-rays interpreted by me (1pt min.). @ -None done CT interpreted by me (1pt min.). @ -None done U/S interpreted by me (1pt. min.). @ -Ultrasound of the gallbladder shows no acute findings What testing was considered but not performed or refused? (CT, X-rays, U/S, labs)? Why? @ -None What meds were considered but not given or refused? Why? @ -None Did you discuss the management of the patient with other professionals (pr ofessionals i.e. , PA, INSTRUMENT LENS INSPECTOR, lab, RT, psych nurse, family welfare social work professor, social work instructor, teacher, corporate responsibility officer, showcase maker)? Give summary @ -No Was smoking cessation discussed for >3mins.? @ -No Was critical care preformed (if so, how long)? @ -No Were there social determinants of health that impacted care today? How? (Homelessness, low income, unemployed, alcoholism, drug addiction, transportation, low edu. Level, literacy, decrease access to med. care, nursing home, rehab)? @ -No Was there de-escalation of care discussed even if they declined (Discuss DNR or withdrawal of care, Hospice)? DNR status @ -No What co-morbidities impacted this encounter? (DM, HTN, Smoking, COPD, CAD, Cancer, CVA, ARF, Chemo, Hep., AIDS, mental health diagnosis, sleep apnea, morbid obesity)? @ -None Was patient admitted / discharged? Hospital course, mention meds given and route, prescriptions, significant lab abnormalities, going to OR and other pertinent info. @ -Discharged. Patient presented to the emergency department for evaluation of epigastric abdominal pain. Laboratory studies obtained significant for mild leukocytosis of 12. LFTs show no significant transaminitis, no hyperbilirubinemia. Amylase and lipase within normal limits. Ultrasound of the gallbladder was obtained which shows no evidence of acute cholecystitis. Patient was provided IV fluids while in the emergency department. She was also provided Reglan and Benadryl. She states that her symptoms have improved with this regimen. Patient will be discharged home, advised follow-up with her PCP. She is understanding agreeable plan. Patient stable at time of discharge. Case discussed with Dr. Madden. Undiagnosed new problem with uncertain prognosis? @ -No Drug Therapy requiring intensive monitoring for toxicity (Heparin, Nitro, Insulin, Cardizem)? @ -No Were any procedures done? @ -No Diagnosis/symptom? @ -Abdominal pain Acute, or Chronic, or Acute on Chronic? @ -Acute Uncomplicated (without systemic symptoms) or Complicated (systemic symptoms)? @ -Uncomplicated Side effects of treatment? @ -No Exacerbation, Progression, or Severe Exacerbation? @ -No Poses a threat to life or bodily function? How? (Chest pain, [place], [place], pneumonia, PE, COPD, DKA, ARF, appy, cholecystitis, CVA, Diverticulitis, Homicidal, Suicidal, threat to staff... and all critical care pts) @ -No - Lab Data Result diagrams: 09/09/23 12:27 09/09/23 12:27 Lab Results 09/09/23 09/09/23 09/09/23 Range/Units 12:27 12:27 12:27 WBC 12.3 H (3.8-10.6) k/uL RBC 5.09 (3.80-5.40) m/uL Hgb 14.8 (11.4-16.0) gm/dL Hct 44.3 (34.0-46.0) % MCV 86.9 (80.0-100.0) fL MCH 29.0 (25.0-35.0) pg MCHC 33.4 (31.0-37.0) g/dL RDW 12.6 (11.5-15.5) % Plt Count 268 (150-450) k/uL MPV 7.5 Neutrophils % 83 % Lymphocytes % 11 % Monocytes % 4 % Eosinophils % 1 % Basophils % 0 % Neutrophils # 10.2 H (1.3-7.7) k/uL Lymphocytes # 1.3 (1.0-4.8) k/uL Monocytes # 0.5 (0-1.0) k/uL Eosinophils # 0.2 (0-0.7) k/uL Basophils # 0.0 (0-0.2) k/uL Sodium (137-145) mmol/L Potassium (3.5-5.1) mmol/L Chloride (98-107) mmol/L Carbon Dioxide (22-30) mmol/L Anion Gap mmol/L BUN (7-17) mg/dL Creatinine (0.52-1.04) mg/dL Est GFR (CKD-EPI)AfAm (>60 ml/min/1.73 sqM) Est GFR (CKD-EPI)NonAf (>60 ml/min/1.73 sqM) Glucose (74-99) mg/dL Plasma Lactic Acid [place] (0.7-2.0) mmol/L Calcium (8.4-10.2) mg/dL Total Bilirubin (0.2-1.3) mg/dL AST (14-36) U/L ALT (4-34) U/L Alkaline Phosphatase (38-126) U/L Total Protein (6.3-8.2) g/dL Albumin (3.5-5.0) g/dL Amylase (30-110) U/L Lipase (23-300) U/L Urine Color Light Yellow Urine Appearance Clear (Clear) Urine pH 5.5 (5.0-8.0) Ur Specific [place] 1.021 (1.001-1.035) Urine Protein Negative (Negative) Urine Glucose (UA) Negative (Negative) Urine Ketones Negative (Negative) Urine Blood Negative (Negative) Urine Nitrite Negative (Negative) Urine Bilirubin Negative (Negative) Urine Urobilinogen <2.0 (<2.0) mg/dL Ur Leukocyte Esterase Negative (Negative) Urine HCG, Qual Not Detected (Not Detectd) 09/09/23 09/09/23 Range/Units 12:27 12:27 WBC (3.8-10.6) k/uL RBC (3.80-5.40) m/uL Hgb (11.4-16.0) gm/dL Hct (34.0-46.0) % MCV (80.0-100.0) fL MCH (25.0-35.0) pg MCHC (31.0-37.0) g/dL RDW (11.5-15.5) % Plt Count (150-450) k/uL MPV Neutrophils % % Lymphocytes % % Monocytes % % Eosinophils % % Basophils % % Neutrophils # (1.3-7.7) k/uL Lymphocytes # (1.0-4.8) k/uL Monocytes # (0-1.0) k/uL Eosinophils # (0-0.7) k/uL Basophils # (0-0.2) k/uL Sodium 137 (137-145) mmol/L Potassium 4.1 (3.5-5.1) mmol/L Chloride 103 (98-107) mmol/L Carbon Dioxide 25 (22-30) mmol/L Anion Gap 9 mmol/L BUN 18 H (7-17) mg/dL Creatinine 0.81 (0.52-1.04) mg/dL Est GFR (CKD-EPI)AfAm >90 (>60 ml/min/1.73 sqM) Est GFR (CKD-EPI)NonAf >90 (>60 ml/min/1.73 sqM) Glucose 84 (74-99) mg/dL Plasma Lactic Acid [place] 1.1 (0.7-2.0) mmol/L Calcium 9.5 (8.4-10.2) mg/dL Total Bilirubin 0.6 (0.2-1.3) mg/dL AST 35 (14-36) U/L ALT 35 H (4-34) U/L Alkaline Phosphatase 86 (38-126) U/L Total Protein 7.5 (6.3-8.2) g/dL Albumin 4.5 (3.5-5.0) g/dL Amylase 45 (30-110) U/L Lipase 58 (23-300) U/L Urine Color Urine Appearance (Clear) Urine pH (5.0-8.0) Ur Specific [place] (1.001-1.035) Urine Protein (Negative) Urine Glucose (UA) (Negative) Urine Ketones (Negative) Urine Blood (Negative) Urine Nitrite (Negative) Urine Bilirubin (Negative) Urine Urobilinogen (<2.0) mg/dL Ur Leukocyte Esterase (Negative) Urine HCG, Qual (Not Detectd) Disposition Clinical Impression: Epigastric pain Disposition: HOME SELF-CARE Condition: Stable Instructions (If sedation given, give patient instructions): Abdominal Pain (ED) Additional Instructions: Please follow up with your primary care provider. Return to the emergency department for new or worsening symptoms. Prescriptions: Metoclopramide [Reglan] 10 mg PO TID PRN #15 tab PRN Reason: Nausea Is patient prescribed a controlled substance at d/c from ED?: No Referrals: Thea Madden DO [Primary Care Provider] - 1-2 days
[2023-09-09 14:38] VITALS: BP 114/62; PULSE 97; RESP 18; TEMP 98
== END 2023-09-09 14:48 | disposition home or self-care (01) ==
LOC: EC 11:27
DX: R10.13 Epigastric pain (principal)
CPT/HCPCS: 36415; 80053; 82150; 83605; 83690; 85025; 81003; 81025; 76705; 99284; 96374; 96375; 96361 ×2; J1200; J2765

== ENCOUNTER 2023-11-24 22:33 | Emergency (ER) | payer OTHER ==
[2023-11-24 23:02] LABS: Glucose,Whole Blood 120 mg/dL (70-110)
--- NOTE | 2023-11-24 23:13 | ED ---
General Adult HPI - General Chief complaint: Nausea/Vomiting/Diarrhea Stated complaint: NVD, Panic Attack Time Seen by Provider: 11/24/23 22:43 Source: patient Mode of arrival: ambulatory Limitations: no limitations - History of Present Illness Initial comments: Dictation was produced using [employer] dictation software. please excuse any grammatical, word or spelling errors. Chief Complaint: 33-year-old with nausea and vomiting History of Present Illness: Patient 33-year-old female she has past medical history of diabetes. Patient was recently started on Wegovy. She has not been entirely compliant with the medication. She had missed several doses. Recently she started back and took an extra dose. States that she has been having intractable bilious vomiting for the last couple hours. Denies any abdominal pain. Patient feels nauseated. She states she cannot keep her psychiatric medications down. Denies any abdominal pain. The ROS documented in this emergency department record has been reviewed and confirmed by me. Those systems with pertinent positive or negative responses have been documented in the HPI. All other systems are other negative and/or noncontributory. - Related Data Home Medications Medication Instructions Recorded Confirmed Viloxazine HCl [Qelbree] 400 mg PO DAILY 03/23/23 03/23/23 Previous Rx's Medication Instructions Recorded ARIPiprazole [Abilify] 5 mg PO DAILY 30 Days #30 tab 07/13/22 lamoTRIgine [LaMICtal] 200 mg PO DAILY 30 Days #30 tab 07/13/22 Docusate [Colace] 100 mg PO BID #60 capsule 03/25/23 HYDROcodone/APAP 5-325MG [[place] 5] 1 - 2 each PO Q4-6H PRN #28 tab 03/25/23 Metoclopramide [Reglan] 10 mg PO TID PRN #15 tab 09/09/23 Allergies Allergy/AdvReac Type Severity Reaction Status Date / Time No Known Allergies Allergy Verified 09/09/23 11:30 Review of Systems ROS Statement: Those systems with pertinent positive or pertinent negative responses have been documented in the HPI. ROS Other: All systems not noted in ROS Statement are negative. Past Medical History Past Medical History: No Reported History Additional Past Medical History / Comment(s): OBstetric history: First was a spontaneous second was a vaginal delivery at 40 weeks and 3 days, third vaginal delivery at 37 weeks and 4 days, this is her fourth . She's had care with Dr. Vu since 12 weeks g estation. Blood type is A+, and denies negative, rubella immune, hepatitis B surface antigen negative, RPR nonreactive, HIV nonreactive, GBS positive. History of Any Multi-Drug Resistant Organisms: None Reported Past Surgical History: Tubal Ligation Additional Past Surgical History / Comment(s): lymph node removal, nose surgery Past Anesthesia/Blood Transfusion Reactions: No Reported Reaction Past Psychological History: ADD/ADHD, Depression Smoking Status: Never smoker Past Alcohol Use History: Rare Past Drug Use History: None Reported, Marijuana - Past Family History Father Family Medical History: No Reported History General Exam - General Exam Comments Initial Comments: PHYSICAL EXAM: General Impression: Alert and oriented x3, not in acute distress HEENT: Normocephalic atraumatic, extra-ocular movements intact, pupils equal and reactive to light bilaterally, mucous membranes moist. Cardiovascular: Heart regular rate and rhythm Chest: Able to complete full sentences, no retractions, no tachypnea Abdomen: abdomen soft, non-tender, non-distended, no organomegaly Musculoskeletal: Pulses present and equal in all extremities, no peripheral edema Motor: no focal deficits noted Neurological: CN II-XII grossly intact, no focal motor or sensory deficits noted Skin: Intact with no visualized rashes Psych: Normal affect and mood Limitations: no limitations Course Vital Signs 11/24/23 11/25/23 11/25/23 22:34 00:00 01:45 Temperature 98.3 F 99.0 F Pulse Rate 74 58 L Respiratory 22 16 Rate Blood Pressure 125/81 142/93 O2 Sat by Pulse 99 98 Oximetry 11/25/23 02:37 Temperature 98.7 F Pulse Rate 61 Respiratory 16 Rate Blood Pressure 122/62 O2 Sat by Pulse 98 Oximetry Medical Decision Making - Medical Decision Making Was pt. sent in by a medical professional or institution (, PA, BOAT OUTBOARD ENGINE MECHANIC, urgent care, hospital, or prison...) When possible be specific @ -No Did you speak to anyone other than the patient for history (EMS, parent, family, police, friend...)? What history was obtained from this source @ -No Did you review nursing and triage notes (agree or disagree)? Why? @ -I reviewed and agree with nursing and triage notes Were old charts reviewed (outside hosp., previous admission, EMS record, old EKG, old radiological studies, urgent care reports/EKG's, prison records)? Report findings @ -No old charts were reviewed Differential Diagnosis (chest pain, altered mental status, abdominal pain women, abdominal pain men, vaginal bleeding, musculoskeletal, weakness, fever, dyspnea, syncope, headache, dizziness, GI bleed, back pain, seizure, CVA, palpatations, mental health)? @ -Differential Weakness: Hypoglycemia, shock, sepsis, hyponatremia, anemia, infection, [place], ETOH, adverse medicine reaction, overdose, stroke, this is not meant to be an all-inclusive list. EKG interpreted by me (3pts min.). @ -See above X-rays interpreted by me (1pt min.). @ -None done CT interpreted by me (1pt min.). @ -None done U/S interpreted by me (1pt. min.). @ -None done What testing was considered but not performed or refused? (CT, X-rays, U/S, labs)? Why? @ -None What meds were considered but not given or refused? Why? @ -None Was smoking cessation discussed for >3mins.? @ -No Were there social determinants of health that impacted care today? How? (Ho melessness, low income, unemployed, alcoholism, drug addiction, transportation, low edu. Level, literacy, decrease access to med. care, retirement, rehab)? @ -No Was there de-escalation of care discussed even if they declined (Discuss DNR or withdrawal of care, Hospice)? DNR status @ -No What co-morbidities impacted this encounter? (DM, HTN, Smoking, COPD, CAD, Cancer, CVA, ARF, Chemo, Hep., AIDS, mental health diagnosis, sleep apnea, morbid obesity)? @ -None Was patient admitted / discharged? Hospital course, mention meds given and route, prescriptions, significant lab abnormalities, going to OR and other pertinent info. @ -33-year-old female presents emergency department with vague symptoms of anxiety, dizziness, nausea vomiting and chills. She believes it is related to diabetes medications. Patient states that she did not eat for the last 24 hours. Vital signs upon arrival are within acceptable limits. Laboratory evaluation shows stress leukocytosis a white count of 17.0. Rest of labs within acceptable limits. Ketones in the urine. Patient given IV fluids and symptom treatment. Patient observed emergency department for approximately 7 hours. She is reevaluated at 5:35 AM plan to be in stable condition she reports improvement of her symptoms. Patient discharged Did you discuss the management of the patient with other professionals (professionals i.e. , PA, BOAT OUTBOARD ENGINE MECHANIC, lab, RT, psych nurse, social services aide, fitness specialist, teacher, commercial loan officer, case assembler)? Give summary @ -No Was critical care preformed (if so, how long)? @ -No Undiagnosed new problem with uncertain prognosis? @ -No Drug Therapy requiring intensive monitoring for toxicity (Heparin, Nitro, Insulin, Cardizem)? @ -No Were any procedures done? @ -No Diagnosis/symptom? Acute, or Chronic, or Acute on Chronic? Uncomplicated (without systemic symptoms) or Complicated (systemic symptoms)? @ -Nausea vomiting dizziness Side effects of treatment? @ -No Exacerbation, Progression, or Severe Exacerbation? @ -No Poses a threat to life or bodily function? How? (Chest pain, [place], [place], pneumonia, PE, COPD, DKA, ARF, appy, cholecystitis, CVA, Diverticulitis, Homicidal, Suicidal, threat to staff... and all critical care pts) @ -No - Lab Data Result diagrams: 11/24/23 23:45 11/24/23 23:45 Lab Results 11/24/23 11/24/23 11/24/23 Range/Units 22:59 23:45 23:45 WBC 17.0 H (3.8-10.6) k/uL RBC 5.08 (3.80-5.40) m/uL Hgb 15.6 (11.4-16.0) gm/dL Hct 43.8 (34.0-46.0) % MCV 86.4 (80.0-100.0) fL MCH 30.8 (25.0-35.0) pg MCHC 35.6 (31.0-37.0) g/dL RDW 13.0 (11.5-15.5) % Plt Count 256 (150-450) k/uL MPV 7.9 Neutrophils % 94 % Lymphocytes % 4 % Monocytes % 2 % Eosinophils % 0 % Basophils % 0 % Neutrophils # 16.0 H (1.3-7.7) k/uL Lymphocytes # 0.7 L (1.0-4.8) k/uL Monocytes # 0.3 (0-1.0) k/uL Eosinophils # 0.0 (0-0.7) k/uL Basophils # 0.0 (0-0.2) k/uL Sodium 139 (137-145) mmol/L Potassium 3.6 (3.5-5.1) mmol/L Chloride 108 H (98-107) mmol/L Carbon Dioxide 20 L (22-30) mmol/L Anion Gap 11 mmol/L BUN 19 H (7-17) mg/dL Creatinine 0.71 (0.52-1.04) mg/dL Est GFR (CKD-EPI)AfAm >90 (>60 ml/min/1.73 sqM) Est GFR (CKD-EPI)NonAf >90 (>60 ml/min/1.73 sqM) Glucose 116 H (74-99) mg/dL POC Glucose (mg/dL) 120 H (70-110) mg/dL POC Glu Informatics Scientist ID Gerber Kacey Plasma Lactic Acid [place] (0.7-2.0) mmol/L Calcium 9.5 (8.4-10.2) mg/dL Total Bilirubin 0.9 (0.2-1.3) mg/dL AST 32 (14-36) U/L ALT 31 (4-34) U/L Alkaline Phosphatase 108 (38-126) U/L Total Protein 7.4 (6.3-8.2) g/dL Albumin 4.8 (3.5-5.0) g/dL HCG, Quant <2.4 mIU/mL Urine Color Urine Appearance (Clear) Urine pH (5.0-8.0) Ur Specific [place] (1.001-1.035) Urine Protein (Negative) Urine Glucose (UA) (Negative) Urine Ketones (Negative) Urine Blood (Negative) Urine Nitrite (Negative) Urine Bilirubin (Negative) Urine Urobilinogen (<2.0) mg/dL Ur Leukocyte Esterase (Negative) 11/24/23 11/25/23 Range/Units 23:45 05:08 WBC (3.8-10.6) k/uL RBC (3.80-5.40) m/uL Hgb (11.4-16.0) gm/dL Hct (34.0-46.0) % MCV (80.0-100.0) fL MCH (25.0-35.0) pg MCHC (31.0-37.0) g/dL RDW (11.5-15.5) % Plt Count (150-450) k/uL MPV Neutrophils % % Lymphocytes % % Monocytes % % Eosinophils % % Basophils % % Neutrophils # (1.3-7.7) k/uL Lymphocytes # (1.0-4.8) k/uL Monocytes # (0-1.0) k/uL Eosinophils # (0-0.7) k/uL Basophils # (0-0.2) k/uL Sodium (137-145) mmol/L Potassium (3.5-5.1) mmol/L Chloride (98-107) mmol/L Carbon Dioxide (22-30) mmol/L Anion Gap mmol/L BUN (7-17) mg/dL Creatinine (0.52-1.04) mg/dL Est GFR (CKD-EPI)AfAm (>60 ml/min/1.73 sqM) Est GFR (CKD-EPI)NonAf (>60 ml/min/1.73 sqM) Glucose (74-99) mg/dL POC Glucose (mg/dL) (70-110) mg/dL POC Glu Informatics Scientist ID Plasma Lactic Acid [place] 1.7 (0.7-2.0) mmol/L Calcium (8.4-10.2) mg/dL Total Bilirubin (0.2-1.3) mg/dL AST (14-36) U/L ALT (4-34) U/L Alkaline Phosphatase (38-126) U/L Total Protein (6.3-8.2) g/dL Albumin (3.5-5.0) g/dL HCG, Quant mIU/mL Urine Color Yellow Urine Appearance Clear (Clear) Urine pH 6.5 (5.0-8.0) Ur Specific [place] 1.029 (1.001-1.035) Urine Protein Trace H (Negative) Urine Glucose (UA) Negative (Negative) Urine Ketones 3+ H (Negative) Urine Blood Negative (Negative) Urine Nitrite Negative (Negative) Urine Bilirubin Negative (Negative) Urine Urobilinogen <2.0 (<2.0) mg/dL Ur Leukocyte Esterase Negative (Negative) Disposition Clinical Impression: Nausea & vomiting Disposition: HOME SELF-CARE Condition: Good Instructions (If sedation given, give patient instructions): Dehydration (ED) Is patient prescribed a controlled substance at d/c from ED?: No Referrals: Thea Madden DO [Primary Care Provider] - 1-2 days Time of Disposition: 05:36
[2023-11-24] MEDS: SODIUM CHLORIDE 0.9% 1,000 ML IV STA (23:18)
[2023-11-24] MEDS: LORazepam 2 MG/ML INJ IV STA (23:22)
[2023-11-24] MEDS: ONDANSETRON 4 MG/2 ML VIAL IVP STA (23:22)
[2023-11-25 00:03] LABS: Basophils % (A) 0 %; Eosinophils % (A) 0 %; HCT 43.8 % (34.0-46.0); HGB 15.6 gm/dL (11.4-16.0); Lymphocytes # (A) 0.7 k/uL (1.0-4.8); Lymphocytes % (A) 4 %; MCH 30.8 pg (25.0-35.0); MCHC 35.6 g/dL (31.0-37.0); MCV 86.4 fL (80.0-100.0); Mean Platelet Volume 7.9; Monocytes # (A) 0.3 k/uL (0-1.0); Monocytes % (A) 2 %; Neutrophils % (A) 94 %; Platelet Count 256 k/uL (150-450); RBC 5.08 m/uL (3.80-5.40)
[2023-11-25 00:21] LABS: ALT 31 U/L (4-34); AST 32 U/L (14-36); African American GFR (CKD) >90 (>60 ml/min/1.73 sqM); Albumin 4.8 g/dL (3.5-5.0); Alkaline Phosphatase 108 U/L (38-126); Anion Gap 11 mmol/L; Blood Urea Nitrogen 19 mg/dL (7-17); Calcium 9.5 mg/dL (8.4-10.2); Carbon Dioxide 20 mmol/L (22-30); Chloride 108 mmol/L (98-107); Glucose 116 mg/dL (74-99); Non-African American GFR(CKD) >90 (>60 ml/min/1.73 sqM); Potassium 3.6 mmol/L (3.5-5.1); Sodium 139 mmol/L (137-145); Total Bilirubin 0.9 mg/dL (0.2-1.3); Total Protein 7.4 g/dL (6.3-8.2)
[2023-11-25 00:55] LABS: HCG,Quantitative Serum <2.4 mIU/mL
[2023-11-25] MEDS: ONDANSETRON 4 MG/2 ML VIAL IVP STA (03:39)
[2023-11-25 05:20] LABS: Appearance,Urine Clear (Clear); Bilirubin,Urine Negative (Negative); Blood,Urine Negative (Negative); Color,Urine Yellow; Glucose,Urine (UA) Negative (Negative); Ketones,Urine 3+ (Negative); Leukocyte Esterase,Urine Negative (Negative); Nitrite,Urine Negative (Negative); PH, Urine 6.5 (5.0-8.0); Protein,Urine Trace (Negative); Specific Gravity,Urine 1.029 (1.001-1.035); Urobilinogen,Urine <2.0 mg/dL (<2.0)
[2023-11-25] MEDS: ONDANSETRON 4 MG ODT STARTER PACK 2 TAB BTL PO STA (05:46)
[2023-11-25 05:50] VITALS: BP 125/81; PULSE 68; RESP 18; TEMP 98.5
== END 2023-11-25 05:49 | disposition home or self-care (01) ==
LOC: EC 22:33
CPT/HCPCS: 36415; 80053; 81003; 83605; 84702; 85025; 96361; 96374; 96375; 96376; 99284

== ENCOUNTER 2024-09-08 19:22 | Emergency (ER) | payer OTHER ==
[2024-09-08 20:15] VITALS: TEMP 98.4
--- NOTE | 2024-09-08 21:04 | ED ---
Lower Extremity Injury HPI - General Chief Complaint: Extremity Injury, Lower Stated Complaint: R Ankle Injury Time Seen by Provider: 09/08/24 19:41 Source: patient, RN notes reviewed Mode of arrival: ambulatory - History of Present Illness Initial Comments: This is a 34-year-old female presenting for right ankle injury/pain (06/24) x 2 hours. Patient states she tripped over a cord causing severe dorsiflexion of her foot with an associated "crack". Patient states she has difficulty ambulating/bearing weight since the incident. Denies use of [id number] pain medication. Denies striking head, loss consciousness, headache, neck pain, other significant injury. MD Complaint: ankle injury Onset/Timin -: hour(s) Injury: Ankle: Right Type of Injury: hyperflexion Severity scale (1-10): 5 Improves With: immobilization, rest Worsens With: weight bearing, movement, palpation Context: walking Associated Symptoms: snap/pop sensation, able to partially bear weight - Related Data Home Medications Medication Instructions Recorded Confirmed Viloxazine HCl [Qelbree] 400 mg PO DAILY 03/23/23 03/23/23 Previous Rx's Medication Instructions Recorded ARIPiprazole [Abilify] 5 mg PO DAILY 30 Days #30 tab 07/13/22 lamoTRIgine [LaMICtal] 200 mg PO DAILY 30 Days #30 tab 07/13/22 Docusate [Colace] 100 mg PO BID #60 capsule 03/25/23 HYDROcodone/APAP 5-325MG [[place] 5] 1 - 2 each PO Q4-6H PRN #28 tab 03/25/23 Metoclopramide [Reglan] 10 mg PO TID PRN #15 tab 09/09/23 Ibuprofen [Motrin] 800 mg PO Q8HR PRN #30 tab 09/08/24 Allergies Allergy/AdvReac Type Severity Reaction Status Date / Time No Known Allergies Allergy Verified 09/08/24 20:14 Review of Systems ROS Statement: Those systems with pertinent positive or pertinent negative responses have been documented in the HPI. ROS Other: All systems not noted in ROS Statement are negative. Past Medical History Past Medical History: No Reported History Additional Past Medical History / Comment(s): OBstetric history: First was a spontaneous second was a vaginal delivery at 40 weeks and 3 days, third vaginal delivery at 37 weeks and 4 days, this is her fourth . She's had care with Dr. Vu since 12 weeks gestation. Blood type is A+, and denies negative, rubella immune, hepatitis B surface antigen negative, RPR nonreactive, HIV nonreactive, GBS positive. History of Any Multi-Drug Resistant Organisms: None Reported Past Surgical History: Tubal Ligation Additional Past Surgical History / Comment(s): lymph node removal, nose surgery Past Anesthesia/Blood Transfusion Reactions: No Reported Reaction Past Psychological History: ADD/ADHD, Depression Smoking Status: Never smoker Past Alcohol Use History: Rare Past Drug Use History: None Reported, Marijuana - Past Family History Father Family Medical History: No Reported History General Exam General appearance: alert, in no apparent distress Head exam: Present: atraumatic, normocephalic, normal inspection Eye exam: Present: normal appearance, PERRL, EOMI. Absent: scleral icterus, conjunctival injection, periorbital swelling ENT exam: Present: normal exam, mucous membranes moist Neck exam: Present: normal inspection. Absent: tenderness, meningismus, lymphadenopathy Respiratory exam: Present: normal lung sounds bilaterally. Absent: respiratory distress, wheezes, rales, rhonchi, stridor Cardiovascular Exam: Present: regular rate, normal rhythm, normal heart sounds. Absent: systolic murmur, diastolic murmur, rubs, gallop, clicks GI/Abdominal exam: Present: soft, normal bowel sounds. Absent: distended, tenderness, guarding, rebound, rigid Extremities exam: Present: full ROM, tenderness (Positive anterior right ankle, navicular and proximal fifth metatarsal TTP without obvious crepitus, ecchymosis with mild/moderate edema. Positive distal Achilles point tenderness. Achilles tendon otherwise feels intact with Gonzales test normal), normal capillary refill, other (RLE distal neurovascular and motor function intact. Dorsalis pedis pulse +2, capillary refill less than 2 seconds. Ankle monitor noted on right ankle.). Absent: pedal edema, joint swelling, calf tenderness Back exam: Present: normal inspection Neurological exam: Present: alert, oriented X3, CN II-XII intact Psychiatric exam: Present: normal affect, normal mood Skin exam: Present: warm, dry, intact, normal color. Absent: rash Course Vital Signs 09/08/24 09/08/24 20:09 22:29 Temperature 98.4 F Pulse Rate 73 78 Respiratory 18 16 Rate Blood Pressure 113/83 119/87 O2 Sat by Pulse 99 98 Oximetry Procedures - Orthopedic Splinting/Casting Injury #1 Side: right Lower Extremity Injury Location: ankle Lower Extremity Immobilizer: posterior splint Other Orthopedic Equipment: crutches Medical Decision Making - Medical Decision Making Was pt. sent in by a medical professional or institution (, PA, AUTOMOTIVE WARRANTY ADMINISTRATOR, urgent care, hospital, or long-term...) When possible be specific @ -No Did you speak to anyone other than the patient for history (EMS, parent, family, police, friend...)? What history was obtained from this source @ -No Did you review nursing and triage notes (agree or disagree)? Why? @ -I reviewed and agree with nursing and triage notes Were old charts reviewed (outside hosp., previous admission, EMS record, old EKG, old radiological studies, urgent care reports/EKG's, long-term records)? Report findings @ -No old charts were reviewed Differential Diagnosis (chest pain, altered mental status, abdominal pain women, abdominal pain men, vaginal bleeding, weakness, fever, dyspnea, syncope, headache, dizziness, GI bleed, back pain, seizure, CVA, palpatations, mental health, musculoskeletal)? @ -Differential Musculoskeletal Muscular strain, contusion, ligament sprain, fracture, arthritis, septic arthritis, bursitis, cellulitis, muscle spasm, nerve compression, DVT, arterial occlusion, herpes zoster, electrolyte abnormality, tumor.... This is not meant to be in all inclusive list EKG interpreted by me (3pts min.). @ -Not done X-rays interpreted by me (1pt min.). @ -Right foot and ankle x-ray shows no acute fracture or dislocation. CT interpreted by me (1pt min.). @ -None done U/S interpreted by me (1pt. min.). @ -None done What testing was considered but not performed or refused? (CT, X-rays, U/S, labs)? Why? @ -None What meds were considered but not given or refused? Why? @ -None Did you discuss the management of the patient with other professionals (professionals i.e. , JENNIFER, AUTOMOTIVE WARRANTY ADMINISTRATOR, lab, RT, psych nurse, social work administrator, oak tanner, teacher, consular officer, dependency case manager)? Give summary @ -No Was smoking cessation discussed for >3mins.? @ -No Was critical care preformed (if so, how long)? @ -No Were there social determinants of health that impacted care today? How? (Homelessness, low income, unemployed, alcoholism, drug addiction, transportation, low edu. Level, literacy, decrease access to med. care, assisted, rehab)? @ -No Was there de-escalation of care discussed even if they declined (Discuss DNR or withdrawal of care, Hospice)? DNR status @ -No What co-morbidities impacted this encounter? (DM, HTN, Smoking, COPD, CAD, Cancer, CVA, ARF, Chemo, Hep., AIDS, mental health diagnosis, sleep apnea, morbid obesity)? @ -None Was patient admitted / discharged? Hospital course, mention meds given and route, prescriptions, significant lab abnormalities, going to OR and other pert inent info. @ -Right foot and ankle x-ray shows no acute fracture or dislocation. Due to inability to bear weight and Achilles tendon tenderness posterior splint applied and crutches provided. Motrin 800 sent to patient's pharmacy. Advised RICE and alternate Tylenol/Motrin every 4 hours for pain. Follow-up with orthopedics for ongoing manage of ankle injury. Discussed patient with Dr. Amaro. Undiagnosed new problem with uncertain prognosis? @ -No Drug Therapy requiring intensive monitoring for toxicity (Heparin, Nitro, Insulin, Cardizem)? @ -No Were any procedures done? @ -No Diagnosis/symptom? @ -Possible partial tear of right Achilles tendon Acute, or Chronic, or Acute on Chronic? @ -Acute Uncomplicated (without systemic symptoms) or Complicated (systemic symptoms)? @ -Uncomplicated Side effects of treatment? @ -No Exacerbation, Progression, or Severe Exacerbation? @ -No Poses a threat to life or bodily function? How? (Chest pain, [place], [place], pneumonia, PE, COPD, DKA, ARF, appy, cholecystitis, CVA, Diverticulitis, Homicidal, Suicidal, threat to staff... and all critical care pts) @ -No Disposition Clinical Impression: Partial tear of right Achilles tendon Disposition: HOME SELF-CARE Condition: Fair Instructions (If sedation given, give patient instructions): Achilles Tendinitis (ED) Additional Instructions: Alternate Tylenol/Motrin every 4 hours for pain. Apply ice for 10 minutes up to 4 times daily. Rest and elevate as needed. Follow-up with orthopedics for ongoing management of ankle injury. Prescriptions: Ibuprofen [Motrin] 800 mg PO Q8HR PRN #30 tab PRN Reason: Pain Is patient prescribed a controlled substance at d/c from ED?: No Referrals: Thea Madden DO [Primary Care Provider] - 1-2 days [facility] [Provider Group] - 1-2 days [facility] [Provider Group] - 1-2 days Time of Disposition: 22:01
--- NOTE | 2024-09-08 21:36 | XR ---
EXAMINATION TYPE: XR foot complete RT DATE OF EXAM: 09/08/2024 9:31 PM COMPARISON: None. CLINICAL INDICATION: Female, 34 years old with history of Trip and fall with forced dorsiflexion and inversi, pain TECHNIQUE: XR foot complete RT XX views were obtained. FINDINGS: There is no acute fracture/dislocation evident. The joint spaces appear within normal limits. The o verlying soft tissue appears unremarkable. IMPRESSION: No acute fracture or dislocation. [facility], , 09/08/2024 9:34 PM
--- NOTE | 2024-09-08 21:36 | XR ---
EXAMINATION TYPE: XR ankle complete RT DATE OF EXAM: 09/08/2024 9:31 PM COMPARISON: None. CLINICAL INDICATION: Female, 34 years old with history of Trip and fall with forced dorsiflexion and inversi, TECHNIQUE: XR ankle complete RT, views submitted for evaluation. FINDINGS: There is no evidence for fracture or dislocation. The joint spaces appear within normal limits. The overlying soft tissue appears unremarkable. Ankle mortise is intact. Soft tissues are within normal l imits. IMPRESSION: 1. No evidence for acute fracture. [facility], , 09/08/2024 9:33 PM
[2024-09-08 22:31] VITALS: BP 119/87; PULSE 78; RESP 16
== END 2024-09-08 22:30 | disposition home or self-care (01) ==
LOC: EC 19:22
DX: S86.011A Strain of right Achilles tendon, initial encounter (principal); W01.0XXA Fall on same level from slipping, tripping and stumbling without subsequent striking against object, initial encounter; Y93.01 Activity, walking, marching and hiking
CPT/HCPCS: 29515; 99283